=== PATIENT | female | born 1960 | race Hispanic/Latino ===

== ENCOUNTER 2017-05-06 21:07 | Emergency (ER) | payer MEDICAID ==
[2017-05-06] MEDS ORDERED: Bacitracin 500 Units/gm Oint Foilpak UD ONE (21:32)
[2017-05-06] MEDS ORDERED: Bacitracin Ointment 30 GM TUBE TOP STA (21:36)
--- NOTE | 2017-05-06 21:54 | C.PDOC ---
History Of Present Illness 56 year old female BIBA for ETOH intoxication. Patient admits to ETOH use today ; she reports she fell while drinking at home. Patient has had 3 CTs and an MRI done at undisclosed locations for similar complaints with negative findings. Patient was found to do the same at [place] from 04/16 to 04/17. Denies head injury, nausea, vomiting, headache, or dizziness. Time Seen by Provider: 05/06/17 21:39 Chief Complaint (Nursing): Substance Abuse History Per: Patient History/Exam Limitations: no limitations Onset/Duration Of Symptoms: Hrs, Waxing/Waning Suicide/Self Injury Attempted (Context): None Modifying Factor(s): Alcohol Associated Symptoms: denies: Depression, Suicidal Thoughts, Suicidal Plan Recent travel outside of the [place]: No Past Medical History Reviewed: Historical Data, Nursing Documentation, Vital Signs Vital Signs: Last Vital Signs Temp 98.2 F 05/06/17 22:23 Pulse 88 05/06/17 23:00 Resp 16 05/06/17 23:00 BP 148/77 05/06/17 23:00 Pulse Ox 97 05/06/17 23:00 - Medical History PMH: Anxiety, Arthritis, Fractures (right arm, right shoulder, left clavical ( current)), HTN, Seizures (unknown) Surgical History: Tonsillectomy - [facility] Procedures IMMOBILIZ/WOUND ATTN NEC (09/03/14) INJECT/INFUSE NEC (09/03/14) OTHER LOCAL DESTRUC SKIN (01/25/14) Family History: States: Unknown Family Hx - Social History Hx Alcohol Use: Yes Hx Substance Use: No - Immunization History Hx Tetanus Toxoid Vaccination: No Hx Influenza Vaccination: No Hx Pneumococcal Vaccination: No Review Of Systems Gastrointestinal: Negative for: Nausea, Vomiting Neurological: Negative for: Headache, Dizziness, Other (LOC) Physical Exam - Physical Exam Appears: Non-toxic, No Acute Distress, Other (ETOH on breath) Skin: Normal Color, Warm, Dry Head: No Laceration, Other (3x3 hematoma with surrounding ecchymosis and yellowish color changes; color changes to bilateral eyes signifying injury is old and consistent with her story) Oral Mucosa: Moist Chest: Symmetrical, No Tenderness Cardiovascular: Rhythm Regular, No Murmur Respiratory: Normal Breath Sounds, No Rales, No Rhonchi, No Wheezing Gastrointestinal/Abdominal: Soft, No Tenderness Neurological/Psych: Oriented x3, Normal Speech, Normal Cognition ED Course And Treatment - Laboratory Results Result Diagrams: 05/06/17 22:01 05/06/17 22:01 Lab Interpretation: Abnormal (etoh 236 H, tox + Barbiturates and opiates) Progress Note: Blood work, and urinalysis ordered. Bacitracin administered. Patient adamently refuses detox; no detox beds available as per Crisis. Patient refuses CT head due to having multiple CTs over the last few days. pt verbally abusive with ED staff and this MD, repeatedly proclaiming she is not an alcoholic! Reevaluation Time: 23:50 Reassessment Condition: Improved Medical Decision Making Medical Decision Making: [facility] reviewed: pt with extensive Klonopin and Perocet Regimen Percocet 10/325 x 120/month Klonopin 0.5 mg/month Pt's U-tox neg for benzo's so pt is not taking the Klonopin that is being picked up at pharmacy U-tox + Barbiturates (not prescribed) and Opiates (Percocets) Asked why she claims she takes these controlled substances for R shoulder pain- which she demonstrates painless FROM Asked what Barbiturates or if taking Fioricet- could not answer the question 2300: call to [facility] [place] [employer], [facility], who is [facility] this regimen, left [facility] for Dr. Neel borrero. d/w Dr. 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 Further suspect drug diversion of Klonopin as pt picked up 45 tabs 04/29 (6 days ago) but u-tox neg for benzo's. A/P: Ongoing benzo, percocet, Barbiturate and alcohol abuse pt refused detox or psych admission. pending records from [facility] from admission earlier this week. the L frontal contusion and hematoma are more than a few days old due to migrating eccymosis and discoloration repeat head CT refused by pt neurological exam and stable gait returned by d/c. Disposition Doctor Will See Patient In The: Office Counseled Patient/Family Regarding: Studies Performed, Diagnosis - Disposition Disposition: HOME/ ROUTINE Disposition Time: 23:51 Condition: GOOD Forms: [facility] (Tuvaluan) - Clinical Impression Clinical Impression: Alcohol abuse, Polysubstance (including opioids) dependence w/o physiol dependence, Head contusion - Scribe Statement The provider has reviewed the documentation as recorded by the Scribmanuela Vigil All medical record entries made by the Kauribmanuela were at my direction and personally dictated by me. I have reviewed the chart and agree that the record accurately reflects my personal performance of the history, physical exam, medical decision making, and the department course for this patient. I have also personally directed, reviewed, and agree with the discharge instructions and disposition.
[2017-05-06 22:04] LABS: BASO # 0.1 K/uL (0.0-0.2); BASO % 1.1 % (0.0-2.0); EOS # 0.2 K/uL (0.0-0.7); HEMOGLOBIN 12.6 g/dL (11.0-16.0); LYMPH # 2.4 K/uL (1.0-4.3); LYMPH % 24.1 % (20.0-40.0); MEAN CORPUSCULAR HEMOGLOBIN 34.6 pg (27.0-31.0); MEAN CORPUSCULAR HGB CONC 33.6 g/dL (33.0-37.0); MEAN PLATELET VOLUME 8.2 fL (7.2-11.7); NEUT # 6.3 K/uL (1.8-7.0); NEUT % 62.8 % (50.0-75.0); RBC 3.66 Mil/uL (3.80-5.20); RED CELL DISTRIBUTION WIDTH 16.1 % (11.5-14.5)
[2017-05-06 22:08] LABS: MEAN CELL VOLUME 102.8 fL (81.0-99.0)
[2017-05-06 22:13] LABS: ALBUMIN 3.9 g/dL (3.5-5.0)
[2017-05-06 22:15] LABS: GFR AFRICAN-AMERICAN > 60; GFR NON-AFRICAN AMERICAN > 60; SALICYLATE < 1.0 mg/dL 1
[2017-05-06 22:16] LABS: ALB/GLOB RATIO 1.3 (1.0-2.1); ALT/SGPT 29 U/L (9-52); AST/SGOT 35 U/L (14-36); BLOOD UREA NITROGEN 12 mg/dL (7-17); CALCIUM 8.6 mg/dl (8.6-10.4)
[2017-05-06 22:18] LABS: ACETAMINOPHEN < 10.0 ug/mL (10.0-30.0)
[2017-05-06 22:36] LABS: SQUAMOUS EPITHIAL 7 /hpf (0-5); URINE BACTERIA MANY (<OCC); URINE BILIRUBIN 1+ (NEGATIVE); URINE BLOOD 1+ (NEGATIVE); URINE CLARITY Hazy (Clear); URINE COLOR Amber (YELLOW); URINE GLUCOSE (UA) NORMAL (Normal); URINE LEUKOCYTE ESTERASE 2+ Leu/uL (Negative); URINE NITRATE NEGATIVE (NEGATIVE); URINE PROTEIN 2+ mg/dL (NEGATIVE)
[2017-05-06 22:55] LABS: BARBITURATES, UR POSITIVE (NEGATIVE); BENZODIAZEPINES, UR NEGATIVE (NEGATIVE)
[2017-05-06 22:59] LABS: OPIATES, UR POSITIVE (NEGATIVE); PHENCYCLIDINE, UR NEGATIVE (NEGATIVE)
[2017-05-06 23:01] VITALS: PULSE 88
[2017-05-07 00:03] VITALS: BP 140/84; RESP 18; TEMP 98.8; O2SAT 98
== END 2017-05-07 00:05 | disposition home or self-care (01) ==
LOC: C.ER 21:07
DX: F10.10 Alcohol abuse, uncomplicated (principal); F11.20 Opioid dependence, uncomplicated; Y90.7 Blood alcohol level of 200-239 mg/100 ml; S00.93XA Contusion of unspecified part of head, initial encounter; W19.XXXA Unspecified fall, initial encounter; Y92.009 Unspecified place in unspecified non-institutional (private) residence as the place of occurrence of the external cause

== ENCOUNTER 2017-10-09 11:23 | Inpatient (IN) | payer MEDICAID ==
[2017-10-09 11:23] VITALS: BMI 29.5
[2017-10-09] MEDS ORDERED: Sodium Chloride 0.9% 1,000 ML IV STA (11:57)
--- NOTE | 2017-10-09 12:04 | C.PDOC ---
History Of Present Illness 57 year old female, whose PMHx includes seizure disorder and alcohol and drug abuse, is brought to the ED by EMS after patient reportedly had a seizure as witnessed by homemaker earlier today. Patient is currently confused and appears to be in post-ictal period. She denies fever, chills, urinary/bowel incontinence , extremity numbness/weakness and denies any other injuries at this time. Chief Complaint (Nursing): Seizure History Per: Patient, EMS, Other (homemaker ) History/Exam Limitations: no limitations Recent Seizure Activity Began: Just Before Arrival Number Of Seizures: One Length Of Seizures (Duration): Unknown Quality Of Seizure: Generalized Associated Symptoms: Bit Tongue Post-ictal Period: Yes Additional History Per: Patient, EMS Past Medical History Reviewed: Historical Data, Nursing Documentation, Vital Signs Vital Signs: Last Vital Signs Temp 98.6 F 10/09/17 11:30 Pulse 101 H 10/09/17 16:11 Resp 18 10/09/17 16:11 BP 177/97 H 10/09/17 16:11 Pulse Ox 96 10/09/17 16:11 - Medical History PMH: Anxiety, Arthritis, Fractures (right upper arm), HTN, Seizures Denies: HIV, Chronic Kidney Disease Surgical History: Tonsillectomy - [facility] Procedures IMMOBILIZ/WOUND ATTN NEC (09/03/14) INJECT/INFUSE NEC (09/03/14) OTHER LOCAL DESTRUC SKIN (01/25/14) Family History: States: Unknown Family Hx - Social History Hx Alcohol Use: Yes Hx Substance Use: No - Immunization History Hx Tetanus Toxoid Vaccination: No Hx Influenza Vaccination: No Hx Pneumococcal Vaccination: No Review Of Systems Constitutional: Negative for: Fever, Chills Genitourinary: Negative for: Incontinence Neurological: Positive for: Confusion, Seizures. Negative for: Weakness, Numbness Physical Exam - Physical Exam Appears: Non-toxic, No Acute Distress Skin: Normal Color, Warm, Dry Head: Atraumatic, Normacephalic Eye(s): bilateral: Normal Inspection Oral Mucosa: Moist Tongue: Bite Throat: Normal, No Erythema, No Exudate Neck: Supple Chest: Symmetrical, No Deformity, No Tenderness Cardiovascular: Rhythm Regular, No Murmur Respiratory: Normal Breath Sounds, No Rales, No Rhonchi, No Wheezing Extremity: Normal ROM, Capillary Refill (less than 2 seconds ) Neurological/Psych: Other (alert, oriented and confused ) Gait: Steady ED Course And Treatment - Laboratory Results Result Diagrams: 10/09/17 12:05 10/09/17 12:05 O2 Sat by Pulse Oximetry: 97 (on RA) Pulse Ox Interpretation: Normal - CT Scan/US CT Head Other Rad Studies (CT/US): Interpreted By Me, Read By Radiologist, Radiology Report Reviewed CT/US Interpretation: PROCEDURE: CT HEAD WITHOUT CONTRAST. HISTORY: seizure. COMPARISON: None available. TECHNIQUE: Axial computed tomography images were obtained through the head/brain without intravenous contrast. Radiation dose: Total exam DLP = 965.78 mGy-cm. This CT exam was performed using one or more of the following dose reduction techniques: Automated exposure control, adjustment of the mA and/or kV according to patient size, and/or use of iterative reconstruction technique. FINDINGS: HEMORRHAGE: Age indeterminate left convexity heterogeneous collection consistent with subdural hematoma. Question trace high density within this collection which could indicate acute on chronic blood. BRAIN: Diffuse atrophy with prominence of the ventricles and sulci noted. No mass effect or edema.Scattered periventricular and subcortical white matter hypodensities, which are nonspecific, but often seen with chronic microvascular ischemic disease. VENTRICLES: No hydrocephalus. CALVARIUM: Unremarkable. PARANASAL SINUSES: Increased attenuation of the left maxillary sinus contents may indicate proteinaceous material or fungal colonization. Considered less likely, blood products secondary to trauma. Correlate clinically. MASTOID AIR CELLS: Unremarkable as visualized. No inflammatory changes. OTHER FINDINGS: Postsurgical changes of the left orbit. Chronic appearing bilateral nasal bone fracture deformities. IMPRESSION: Age indeterminate left convexity heterogeneous collection consistent with subdural hematoma. Question trace high density within this collection which could indicate acute on chronic blood. Recommend 6 hour follow-up to assess for stability. Nonspecific white matter changes. Increased attenuation of the left maxillary sinus contents may indicate proteinaceous material or fungal colonization. Considered less likely, blood products secondary to trauma. Correlate clinically. Findings discussed with Vera Humphries on 10/09/17 at 12:39 p.m. Progress Note: Bloodwork, urinalysis, CT Head, CXR, EKG ordered and reviewed. Librium PO and IV Fluids administered. Contacted vicky's PMD, DR. Ashely Mohan, who states he does not have admitting privileges at [facility] and advises to contact Dr. Riggs. Dr. Riggs's service was paged. Notified that Dr. Riggs is away on vacation and advised to contact Dr. Ashton. Dr. Ashton paged at 2:42pm. Unable to reach Dr. Ashton. Case discussed with Dr. Bell, who accepts the patient for admission. Case discussed with Dr. Lopez, who agrees to admit patient to medicine. Advised repeat head CT tomorrow morning. Disposition - Disposition Disposition: HOSPITALIZED Disposition Time: 15:17 Condition: FAIR - Clinical Impression Clinical Impression: Seizure, Subdural hematoma - PA / LABORATORY SCIENTIST / Resident Statement MD/DO has reviewed & agrees with the documentation as recorded. - Scribe Statement The provider has reviewed the documentation as recorded by the Scribe (Kenna Bullard) All medical record entries made by the Scribe were at my direction and personally dictated by me. I have reviewed the chart and agree that the record accurately reflects my personal performance of the history, physical exam, medical decision making, and the department course for this patient. I have also personally directed, reviewed, and agree with the discharge instructions and disposition. Decision To Admit - Pt Status Changed To: Hospital Disposition Of: Observation - . Bed Request Type: Telemetry Admitting Physician: Dannie Bell Patient Diagnosis: Seizure, Subdural hematoma
[2017-10-09 12:11] LABS: BASO # 0.2 K/uL (0.0-0.2); BASO % 1.1 % (0.0-2.0); EOS # 0.1 K/uL (0.0-0.7); HEMOGLOBIN 11.3 g/dL (11.0-16.0); LYMPH # 1.4 K/uL (1.0-4.3); LYMPH % 9.5 % (20.0-40.0); MEAN CELL VOLUME 101.6 fL (81.0-99.0); MEAN CORPUSCULAR HEMOGLOBIN 33.4 pg (27.0-31.0); MEAN CORPUSCULAR HGB CONC 32.9 g/dL (33.0-37.0); MEAN PLATELET VOLUME 8.3 fL (7.2-11.7); MONO # 0.8 K/uL (0.0-0.8); MONO % 5.6 % (0.0-10.0); NEUT # 12.1 K/uL (1.8-7.0); NEUT % 82.8 % (50.0-75.0); PLATELET COUNT 343 K/uL (130-400); RBC 3.39 Mil/uL (3.80-5.20); RED CELL DISTRIBUTION WIDTH 15.5 % (11.5-14.5); WHITE BLOOD COUNT 14.6 K/uL (4.8-10.8)
[2017-10-09 12:24] LABS: ALB/GLOB RATIO 1.2 (1.0-2.1); ALBUMIN 4.3 g/dL (3.5-5.0); ALT/SGPT 26 U/L (9-52); AST/SGOT 25 U/L (14-36); BLOOD UREA NITROGEN 12 mg/dL (7-17); CALCIUM 8.3 mg/dl (8.6-10.4); GFR AFRICAN-AMERICAN > 60; GFR NON-AFRICAN AMERICAN > 60
[2017-10-09 12:28] LABS: DILANTIN (PHENYTOIN) < 3.0 ug/mL (10-20)
[2017-10-09 12:30] LABS: VALPROIC ACID < 10.0 ug/mL (50.0-100.0)
[2017-10-09 12:31] LABS: BANDS 1 % (0-2); BASOPHIL 1 % (0-2); EOSINOPHIL 4 % (0-4); MONOCYTE 4 % (0-10); TOTAL CELLS COUNTED 100
[2017-10-09 12:32] LABS: LYMPHOCYTE 12 % (20-40); NEUTROPHIL 78 % (50-75); PLATELET ESTIMATE NORMAL (NORMAL)
[2017-10-09 12:33] LABS: LARGE PLATELETS PRESENT
--- NOTE | 2017-10-09 12:50 | CT ---
PROCEDURE: CT HEAD WITHOUT CONTRAST. HISTORY: seizure COMPARISON: None available. TECHNIQUE: Axial computed tomography images were obtained through the head/brain without intravenous contrast. Radiation dose: Total exam DLP = 965.78 mGy-cm. This CT exam was performed using one or more of the following dose reduction techniques: Automated exposure control, adjustment of the mA and/or kV according to patient size, and/or use of iterative reconstruction technique. FINDINGS: HEMORRHAGE: Age indeterminate left convexity heterogeneous collection consistent with subdural hematoma. Question trace high density within this collection which could indicate acute on chronic blood. BRAIN: Diffuse atrophy with prominence of the ventricles and sulci noted. No mass effect or edema.Scattered periventricular and subcortical white matter hypodensities, which are nonspecific, but often seen with chronic microvascular ischemic disease. VENTRICLES: No hydrocephalus. CALVARIUM: Unremarkable. PARANASAL SINUSES: Increased attenuation of the left maxillary sinus contents may indicate proteinaceous material or fungal colonization. Considered less likely, blood products secondary to trauma. Correlate clinically. MASTOID AIR CELLS: Unremarkable as visualized. No inflammatory changes. OTHER FINDINGS: Postsurgical changes of the left orbit. Chronic appearing bilateral nasal bone fracture deformities. IMPRESSION: Age indeterminate left convexity heterogeneous collection consistent with subdural hematoma. Question trace high density within this collection which could indicate acute on chronic blood. Recommend 6 hour follow-up to assess for stability. Nonspecific white matter changes. Increased attenuation of the left maxillary sinus contents may indicate proteinaceous material or fungal colonization. Considered less likely, blood products secondary to trauma. Correlate clinically. Findings discussed with Vera Humphries on 10/09/17 at 12:39 p.m.
[2017-10-09 13:25] LABS: BARBITURATES, UR NEGATIVE (NEGATIVE); BENZODIAZEPINES, UR NEGATIVE (NEGATIVE); OPIATES, UR NEGATIVE (NEGATIVE); PHENCYCLIDINE, UR NEGATIVE (NEGATIVE)
--- NOTE | 2017-10-09 13:25 | RAD ---
HISTORY: Seizure COMPARISON: CT of the chest with contrast performed 02/24/16 TECHNIQUE: Chest, one view. FINDINGS: Examination limited by habitus. LUNGS: No focal consolidation. Please note that chest x-ray has limited sensitivity for the detection of pulmonary masses. PLEURA: No significant pleural effusion identified. No definite pneumothorax . CARDIOVASCULAR: Heart size appears top normal. OSSEOUS STRUCTURES: Metallic plate and screw fixation of the right proximal humerus. Chronic deformity of the distal left clavicle. VISUALIZED UPPER ABDOMEN: Unremarkable. OTHER FINDINGS: None. IMPRESSION: No focal consolidation, significant pleural effusion, or definite pneumothorax identified.
[2017-10-09 13:56] LABS: SQUAMOUS EPITHIAL 1 /hpf (0-5); URINE BACTERIA MANY (<OCC); URINE BILIRUBIN NEGATIVE (NEGATIVE); URINE BLOOD NEGATIVE (NEGATIVE); URINE CLARITY Clear (Clear); URINE COLOR Yellow (YELLOW); URINE GLUCOSE (UA) NORMAL (Normal); URINE LEUKOCYTE ESTERASE NEG Leu/uL (Negative); URINE NITRATE POSITIVE (NEGATIVE); URINE PROTEIN 1+ mg/dL (NEGATIVE); URINE UROBILINOGEN NORMAL mg/dL (0.2-1.0)
[2017-10-09 16:27] LABS: INR 1.1; PROTHROMBIN TIME 12.5 SECONDS (9.7-12.2)
[2017-10-09] MEDS: (Novolin R) Insulin Human Regular 100 units/ml vial SC SCH (22:20)
--- NOTE | 2017-10-09 23:59 | CP.PCM.HP ---
History of Present Illness - History of Present Illness History of Present Illness: CC: Seizure episode HPI: 57 year old white female, whose PMHx includes seizure disorder and alcohol and drug abuse, non complaint with diet, medication and follow up, recent hospitalizationis brought to the ED by EMS after patient reportedly had a seizure as witnessed by homemaker earlier today. Patient is currently confused and appears to be in post-ictal period. She denies fever, chills, urinary/bowel incontinence, extremity numbness/weakness and denies any other injuries at this time Present on Admission - Present on Admission Any Indicators Present on Admission: Yes Review of Systems - Review of Systems Systems not reviewed;Unavailable: Acuity of Condition - Constitutional Constitutional: Fatigue, Malaise, Weakness - EENT Eyes: absent: As Per HPI, Blind Spots, Blurred Vision, Change in Vision, Decreased Night Vision, Diplopia, Discharge, Dry Eye, Exophthalmos, Floaters, Irritation, Itchy Eyes, Loss of Peripheral Vision, Pain, Photophobia, Requires Corrective Lenses, Sees Flashes, Spots in Vision, Tunnel Vision, Other Visual Disturbances, Loss of Vision, Other Nose/Mouth/Throat: absent: As Per HPI, Epistaxis, Nasal Congestion, Nasal Discharge, Nasal Obstruction, Nasal Trauma, Nose Pain, Post Nasal Drip, Sinus Pain, Sinus Pressure, Bleeding Gums, Change in Voice, Dental Pain, Dry Mouth, Dysphagia, Halitosis, Hoarsness, Lip Swelling, Mouth Lesions, Mouth Pain, Odynophagia, Sore Throat, Throat Swelling, Tongue Swelling, Facial Pain, Neck Pain, Neck Mass, Other - Cardiovascular Cardiovascular: absent: As Per HPI, Acrocyanosis, Chest Pain, Chest Pain at Rest , Chest Pain with Activity, Claudication, Diaphoresis, Dyspnea, Dyspnea on Exertion, Edema, Irregular Heart Rhythm, Pain Radiating to Arm/Neck/Jaw, Leg Edema, Leg Ulcers, Lightheadedness, Orthopnea, Palpitations, Paroxysmal Nocturnal Dyspnea, Pedal Edema, Radiating Pain, Rapid Heart Rate, Slow Heart Rate, Syncope, Other - Gastrointestinal Gastrointestinal: absent: As Per HPI, Abdominal Pain, Belching, Bloating, Change in Bowel Habits, Change in Stool Character, Coffee Ground Emesis, Constipation, Cramping, Diarrhea, Dyspepsia, Dysphagia, Early Satiety, Excessive Flatus, Fecal Incontinence, Heartburn, Hematemesis, Hematochezia, Loose Stools, Melena, Nausea, Odynophagia, Temesmus, Vomiting, Other - Genitourinary Genitourinary: absent: As Per HPI, Change in Urinary Stream, Difficulty Urinating, Dysuria, Flank Pain, Hematuria, Pyuria, Nocturia, Urinary Incontinence, Urinary Frequency, Urinary Hesitance, Urinary Urgency, Voiding Freq/Small Amts, Freq UTI, Hx Renal/Bladder Calculi, Hx /Renal Surgery, Bladder Distension, Other - Neurological Neurological: Abnormal Movements, Dizziness. absent: As Per HPI, Abnormal Gait , Abnormal Hearing, Abnormal Speech, Behavioral Changes, Burning Sensations, Confusion, Convulsions, Disequilibrium, Numbness, Focal Weakness, Frequent Falls , Headaches, Lack of Coordination, Loss of Vision, Memory Loss, Paresthesias, Radicular Pain, Restless Legs, Sensory Deficit, Syncope, Tingling, Tremor, Vertigo, Weakness, Other Visual Disturbances, Other - Psychiatric Psychiatric: absent: As Per HPI, Abnormal Sleep Pattern, Anhedonia, Anxiety, Auditory Hallucinations, Behavioral Changes, Change in Appetite, Change in Libido, Confusion, Depression, Difficulty Concentrating, Hallucinations, Homicidal Ideation, Hopelessness, Irritability, Memory Loss, Mood Swings, Panic Attacks, Paranoia, Suicidal Ideation, Visual Hallucinations, Tactile Hallucinations, Other Past Patient History - Infectious Disease Hx of Infectious Diseases: None - Past Medical History & Family History Past Medical History?: Yes - Past Social History Smoking Status: Never Smoked - CARDIAC Hx Hypertension: Yes - PULMONARY Hx Respiratory Disorders: No - NEUROLOGICAL Hx Seizures: Yes - HEENT Hx HEENT Problems: No - RENAL Hx Chronic Kidney Disease: No - ENDOCRINE/METABOLIC Hx Endocrine Disorders: Yes (DM2) - HEMATOLOGICAL/ONCOLOGICAL Hx Human Immunodeficiency Virus (HIV): No - INTEGUMENTARY Hx Dermatological Problems: No - MUSCULOSKELETAL/RHEUMATOLOGICAL Hx Falls: Yes - GASTROINTESTINAL Hx Gastrointestinal Disorders: No - GENITOURINARY/GYNECOLOGICAL Hx Genitourinary Disorders: No - PSYCHIATRIC Hx Substance Use: No - SURGICAL HISTORY Hx Tonsillectomy: Yes - ANESTHESIA Hx Anesthesia: Yes Hx Anesthesia Reactions: No Hx Malignant Hyperthermia: No Meds Allergies/Adverse Reactions: Allergies Allergy/AdvReac Type Severity Reaction Status Date / Time No Known Allergies Allergy Verified 10/09/17 11:34 Physical Exam - Constitutional Appears: No Acute Distress - Head Exam Head Exam: ATRAUMATIC, NORMAL INSPECTION, NORMOCEPHALIC - Eye Exam Eye Exam: EOMI, Normal appearance, PERRL Pupil Exam: NORMAL ACCOMODATION, PERRL - Respiratory Exam Respiratory Exam: Clear to Auscultation Bilateral, NORMAL BREATHING PATTERN - Cardiovascular Exam Cardiovascular Exam: REGULAR RHYTHM - GI/Abdominal Exam GI & Abdominal Exam: Normal Bowel Sounds, Soft. absent: Tenderness - Psychiatric Exam Psychiatric exam: Normal Affect, Normal Mood - Skin Additional comments: skin is flushed, no bruises Results - Vital Signs Recent Vital Signs: Last Vital Signs Temp 98.3 F 10/09/17 20:20 Pulse 96 H 10/09/17 20:20 Resp 20 10/09/17 20:20 BP 164/89 H 10/09/17 20:20 Pulse Ox 97 10/09/17 20:20 - Labs Result Diagrams: 10/09/17 12:05 10/09/17 12:05 Labs: Laboratory Results - last 24 hr 10/09/17 10/09/17 10/09/17 11:26 12:05 12:05 WBC 14.6 H RBC 3.39 L Hgb 11.3 Hct 34.4 MCV 101.6 H MCH 33.4 H MCHC 32.9 L RDW 15.5 H Plt Count 343 MPV 8.3 Neut % (Auto) 82.8 H Lymph % (Auto) 9.5 L [place] % (Auto) 5.6 Eos % (Auto) 1.0 Baso % (Auto) 1.1 Neut # 12.1 H Lymph # 1.4 [place] # 0.8 Eos # 0.1 Baso # 0.2 Neutrophils % (Manual) 78 H Band Neutrophils % 1 Lymphocytes % (Manual) 12 L Monocytes % (Manual) 4 Eosinophils % (Manual) 4 Basophils % (Manual) 1 Platelet Estimate Normal Large Platelets Present PT INR APTT Sodium 132 Potassium 4.2 Chloride 95 L Carbon Dioxide 26 Anion Gap 15 BUN 12 Creatinine 0.4 L Est GFR ( Amer) > 60 Est GFR (Non-Af Amer) > 60 POC Glucose (mg/dL) 124 H Random Glucose 119 H Calcium 8.3 L Total Bilirubin 0.6 AST 25 ALT 26 Alkaline Phosphatase 117 Total Creatine Kinase 61 Total Protein 7.9 Albumin 4.3 Globulin 3.6 Albumin/Globulin Ratio 1.2 Urine Color Urine Clarity Urine pH Ur Specific [place] Urine Protein Urine Glucose (UA) Urine Ketones Urine Blood Urine Nitrate Urine Bilirubin Urine Urobilinogen Ur Leukocyte Esterase Urine WBC (Auto) Urine RBC (Auto) Ur Squamous Epith Cells Urine Bacteria Urine Opiates Screen Urine Methadone Screen Ur Barbiturates Screen Phenytoin Valproic Acid Carbamazepine Ur Phencyclidine Scrn Ur Amphetamines Screen U Benzodiazepines Scrn U Oth Cocaine Metabols U Cannabinoids Screen Alcohol, Quantitative < 10 10/09/17 10/09/17 10/09/17 12:05 12:49 12:49 WBC RBC Hgb Hct MCV MCH MCHC RDW Plt Count MPV Neut % (Auto) Lymph % (Auto) [place] % (Auto) Eos % (Auto) Baso % (Auto) Neut # Lymph # [place] # Eos # Baso # Neutrophils % (Manual) Band Neutrophils % Lymphocytes % (Manual) Monocytes % (Manual) Eosinophils % (Manual) Basophils % (Manual) Platelet Estimate Large Platelets PT INR APTT Sodium Potassium Chloride Carbon Dioxide Anion Gap BUN Creatinine Est GFR ( Amer) Est GFR (Non-Af Amer) POC Glucose (mg/dL) Random Glucose Calcium Total Bilirubin AST ALT Alkaline Phosphatase Total Creatine Kinase Total Protein Albumin Globulin Albumin/Globulin Ratio Urine Color Yellow Urine Clarity Clear Urine pH 7.0 Ur Specific [place] 1.014 Urine Protein 1+ H Urine Glucose (UA) Normal Urine Ketones Negative Urine Blood Negative Urine Nitrate Positive H Urine Bilirubin Negative Urine Urobilinogen Normal Ur Leukocyte Esterase Neg Urine WBC (Auto) 6 H Urine RBC (Auto) < 1 Ur Squamous Epith Cells 1 Urine Bacteria Many H Urine Opiates Screen Negative Urine Methadone Screen Negative Ur Barbiturates Screen Negative Phenytoin < 3.0 L Valproic Acid < 10.0 L Carbamazepine 4.0 Ur Phencyclidine Scrn Negative Ur Amphetamines Screen Negative U Benzodiazepines Scrn Negative U Oth Cocaine Metabols Negative U Cannabinoids Screen Negative Alcohol, Quantitative 10/09/17 16:09 WBC RBC Hgb Hct MCV MCH MCHC RDW Plt Count MPV Neut % (Auto) Lymph % (Auto) [place] % (Auto) Eos % (Auto) Baso % (Auto) Neut # Lymph # [place] # Eos # Baso # Neutrophils % (Manual) Band Neutrophils % Lymphocytes % (Manual) Monocytes % (Manual) Eosinophils % (Manual) Basophils % (Manual) Platelet Estimate Large Platelets PT 12.5 H INR 1.1 APTT 27 Sodium Potassium Chloride Carbon Dioxide Anion Gap BUN Creatinine Est GFR ( Amer) Est GFR (Non-Af Amer) POC Glucose (mg/dL) Random Glucose Calcium Total Bilirubin AST ALT Alkaline Phosphatase Total Creatine Kinase Total Protein Albumin Globulin Albumin/Globulin Ratio Urine Color Urine Clarity Urine pH Ur Specific [place] Urine Protein Urine Glucose (UA) Urine Ketones Urine Blood Urine Nitrate Urine Bilirubin Urine Urobilinogen Ur Leukocyte Esterase Urine WBC (Auto) Urine RBC (Auto) Ur Squamous Epith Cells Urine Bacteria Urine Opiates Screen Urine Methadone Screen Ur Barbiturates Screen Phenytoin Valproic Acid Carbamazepine Ur Phencyclidine Scrn Ur Amphetamines Screen U Benzodiazepines Scrn U Oth Cocaine Metabols U Cannabinoids Screen Alcohol, Quantitative Assessment & Plan (1) Seizure Status: Acute (2) Subdural hematoma Assessment and Plan: chronic but we shall get neurosurgical consult Status: Acute (3) Alcohol abuse Status: Acute
[2017-10-10] MEDS: (Novolin R) Insulin Human Regular 100 units/ml vial SC SCH ×4 (08:18→21:44)
[2017-10-10] MEDS ORDERED: Enoxaparin 40 mg Syringe SC SCH (10:00)
--- NOTE | 2017-10-10 10:28 | CP.PCM.PN ---
Subjective - Date & Time of Evaluation Date of Evaluation: 10/10/17 Time of Evaluation: 10:25 - Subjective Subjective: pt with csdh noted originally in July 2017 Seen at multiple [facility] for non compliance with seizure medication and alcohol abuse now presents again with CSDH no bigger than before, after having another seizure. There is no surgical intervention indicated. Radiologists did not go back to prior admissions to compare old studies Objective - Vital Signs/Intake and Output Vital Signs (last 24 hours): Temp Pulse Resp BP Pulse Ox 98.4 F 95 H 20 153/86 H 95 10/10/17 07:45 10/10/17 07:45 10/10/17 07:45 10/10/17 07:45 10/10/17 07:45 Intake and Output: 10/10/17 10/10/17 06:59 18:59 Intake Total 110 Balance 110 - Medications Medications: Current Medications Amlodipine Besylate (Norvasc) 2.5 mg PO DAILY [facility] Last Admin: 10/10/17 09:33 Dose: 2.5 mg Carbamazepine (Tegretol) 200 mg PO BID [facility] Last Admin: 10/10/17 09:34 Dose: 200 mg Folic Acid (Folic Acid) 1 mg PO DAILY [facility] Last Admin: 10/10/17 09:33 Dose: 1 mg Insulin Human Regular (Novolin R) 0 unit SC ACHS [facility] PRN Reason: Protocol Last Admin: 10/10/17 08:18 Dose: Not Given Metformin HCl (Glucophage Xr) 500 mg PO BID [facility] Last Admin: 10/10/17 09:32 Dose: 500 mg Phenytoin Sodium (Dilantin) 100 mg PO TID [facility] Last Admin: 10/10/17 09:33 Dose: 100 mg Zolpidem Tartrate (Ambien) 5 mg PO HS PRN PRN Reason: Insomnia Last Admin: 10/10/17 00:18 Dose: 5 mg - Labs Labs: 10/09/17 12:05 10/09/17 12:05 PT 12.5 SECONDS (9.7-12.2) H 10/09/17 16:09 INR 1.1 10/09/17 16:09 APTT 27 SECONDS (21-34) 10/09/17 16:09
--- NOTE | 2017-10-10 12:01 | CT ---
PROCEDURE: CT HEAD WITHOUT CONTRAST. HISTORY: f/u COMPARISON: None available. TECHNIQUE: Axial computed tomography images were obtained through the head/brain without intravenous contrast. Radiation dose: Total exam DLP = 892 mGy-cm. This CT exam was performed using one or more of the following dose reduction techniques: Automated exposure control, adjustment of the mA and/or kV according to patient size, and/or use of iterative reconstruction technique. FINDINGS: HEMORRHAGE: The previously referenced left sub dural frontoparietal convexity hematoma mostly low-density consistent with a chronic subdural renoted. No change in size is seen. No interval increased hyperdense more acute or subacute appearing blood now noted. The prior mentioned possibility of minimal acute on chronic blood is renoted on this exam as well BRAIN: As above. The prior chronic microvascular ischemic changes are renoted VENTRICLES: Unremarkable. No hydrocephalus. CALVARIUM: Unremarkable. PARANASAL SINUSES: Paranasal sinus inflammatory changes are renoted is also applied trauma changes and postsurgical changes of the left maxillary anterior wall the fluid level here B did prior trauma and/or acute sinusitis. Correlate clinically this appearance is similar MASTOID AIR CELLS: Unremarkable as visualized. No inflammatory changes. OTHER FINDINGS: None. IMPRESSION: The left convexity extra-axial collection consistent with a subdural hematoma is similar in appearance - likely relates to an acute to chronic subdural. No increasing size or significant appearing acute/subacute hemorrhagic components now noted. Sub cm potential blood products- are similar. Continued surveillance recommended Left maxillary sinus posttraumatic/ postsurgical changes. Air-fluid level here as described above compatible with liquified blood and/or acute sinusitis. Follow-up recommended
[2017-10-10 14:10] LABS: CARBAMAZEPINE 3.9 ug/mL (4.0-12.0)
--- NOTE | 2017-10-10 14:35 | CARD ---
APPROVED REPORT EKG Measurement Heart [id number] <Conclusion> Sinus tachycardia Otherwise normal ECG
[2017-10-10 14:50] LABS: DILANTIN (PHENYTOIN) 10.5 ug/mL (10-20)
--- NOTE | 2017-10-10 16:32 | CP.PCM.CON ---
History of Present Illness - History of Present Illness History of Present Illness: Mrs. Blevins is a 57-year-old woman with a past medical history of hypertension, diabetes, alcohol abuse, and seizure disorder, who was brought in for a generalized tonic-clonic seizure. According to the patient, she is compliant with dilantin and carbamazepine. Her level of dilantin was low, but therapeutic ; however, the carbamazepine level was subtherapeutic. She is currently back to baseline, but states that she still feels sore, tired and her memory is impaired. She had bitten her tongue on both sides, but her speech was clear. According to the chart review, the patient has a long history of non-compliance and alcohol abuse as well as alcohol withdrawal seizures. On previous admissions, CT scan of the head demonstrated a left chronic subdural. Repeat CT scan done during this admission showed that this continues to be stable, but there was an area of concern where there may be a more acute component. However , when this was repeated again, it was confirmed that the area is of lower density and likely chronic. She is followed by neurosurgery, and there is no plan for surgery at this time. Review of Systems - Review of Systems All systems: reviewed and no additional remarkable complaints except Past Patient History - Infectious Disease Hx of Infectious Diseases: None - Past Medical History & Family History Past Medical History?: Yes - Past Social History Smoking Status: Never Smoked - CARDIAC Hx Hypertension: Yes - PULMONARY Hx Respiratory Disorders: No - NEUROLOGICAL Hx Seizures: Yes - HEENT Hx HEENT Problems: No - RENAL Hx Chronic Kidney Disease: No - ENDOCRINE/METABOLIC Hx Endocrine Disorders: Yes (DM2) - HEMATOLOGICAL/ONCOLOGICAL Hx Human Immunodeficiency Virus (HIV): No - INTEGUMENTARY Hx Dermatological Problems: No - MUSCULOSKELETAL/RHEUMATOLOGICAL Hx Arthritis: Yes - GASTROINTESTINAL Hx Gastrointestinal Disorders: No - GENITOURINARY/GYNECOLOGICAL Hx Genitourinary Disorders: No - PSYCHIATRIC Hx Substance Use: No - SURGICAL HISTORY Hx Tonsillectomy: Yes - ANESTHESIA Hx Anesthesia: Yes Hx Anesthesia Reactions: No Hx Malignant Hyperthermia: No Meds Allergies/Adverse Reactions: Allergies Allergy/AdvReac Type Severity Reaction Status Date / Time No Known Allergies Allergy Verified 10/09/17 11:34 - Medications Medications: Current Medications Amlodipine Besylate (Norvasc) 5 mg PO DAILY [facility] Carbamazepine (Tegretol) 400 mg PO Q12 [facility] Folic Acid (Folic Acid) 1 mg PO DAILY [facility] Last Admin: 10/10/17 09:33 Dose: 1 mg Insulin Human Regular (Novolin R) 0 unit SC ACHS [facility] PRN Reason: Protocol Last Admin: 10/10/17 12:23 Dose: Not Given Lorazepam (Ativan) 1 mg PO Q6 PRN PRN Reason: Anxiety Metformin HCl (Glucophage Xr) 500 mg PO BID [facility] Last Admin: 10/10/17 09:32 Dose: 500 mg Phenytoin Sodium (Dilantin) 100 mg PO TID [facility] Last Admin: 10/10/17 13:59 Dose: 100 mg Zolpidem Tartrate (Ambien) 5 mg PO HS PRN PRN Reason: Insomnia Last Admin: 10/10/17 00:18 Dose: 5 mg Physical Exam - Constitutional Appears: Well - Head Exam Head Exam: ATRAUMATIC, NORMAL INSPECTION, NORMOCEPHALIC - Eye Exam Eye Exam: EOMI, Normal appearance, PERRL - ENT Exam ENT Exam: Mucous Membranes Moist, Normal Exam - Neck Exam Neck exam: Positive for: Normal Inspection - Respiratory Exam Respiratory Exam: Clear to Auscultation Bilateral, NORMAL BREATHING PATTERN - Cardiovascular Exam Cardiovascular Exam: REGULAR RHYTHM, +S1, +S2 - GI/Abdominal Exam GI & Abdominal Exam: Normal Bowel Sounds, Soft. absent: Tenderness - Rectal Exam Rectal Exam: Deferred - Extremities Exam Extremities exam: Positive for: normal inspection - Back Exam Back exam: NORMAL INSPECTION - Neurological Exam Neurological exam: Alert, CN II-XII Intact, Normal Gait, Oriented x3, Reflexes Normal - Psychiatric Exam Psychiatric exam: Normal Affect, Normal Mood - Skin Skin Exam: Dry, Intact, Normal Color, Warm Results - Vital Signs Recent Vital Signs: Last Vital Signs Temp 98.4 F 10/10/17 07:45 Pulse 95 H 10/10/17 07:45 Resp 20 10/10/17 07:45 BP 153/86 H 10/10/17 07:45 Pulse Ox 95 10/10/17 07:45 - Labs Result Diagrams: 10/09/17 12:05 10/09/17 12:05 Labs: Laboratory Results - last 24 hr 10/09/17 10/09/17 10/10/17 16:09 21:51 06:17 PT 12.5 H INR 1.1 APTT 27 POC Glucose (mg/dL) 123 H 118 H Phenytoin Carbamazepine 10/10/17 10/10/17 11:29 13:37 PT INR APTT POC Glucose (mg/dL) 137 H Phenytoin 10.5 Carbamazepine 3.9 L Assessment & Plan (1) Seizure Assessment and Plan: Will continue dilantin at current dose, but increase carbamazepine to 400 mg BID. No further imaging or EEGs required at this time. Status: Acute Priority: High (2) Subdural hematoma Assessment and Plan: Will defer to neurosurgery for further follow-up or any recommended imaging. Status: Chronic Priority: Medium
--- NOTE | 2017-10-10 23:15 | CP.PCM.PN ---
Subjective - Date & Time of Evaluation Date of Evaluation: 10/10/17 Time of Evaluation: 18:00 - Subjective Subjective: pt seen and evaluated, is anxious and nervous, she is possibly on dilantin, also seen by neurolgy, less depressed,afebrile Objective - Vital Signs/Intake and Output Vital Signs (last 24 hours): Temp Pulse Resp BP Pulse Ox 98.3 F 110 H 18 158/91 H 95 10/10/17 16:00 10/10/17 17:57 10/10/17 16:00 10/10/17 16:00 10/10/17 16:00 Intake and Output: 10/10/17 10/11/17 18:59 06:59 Intake Total 600 Balance 600 - Medications Medications: Current Medications Amlodipine Besylate (Norvasc) 5 mg PO DAILY [facility] Carbamazepine (Tegretol) 400 mg PO Q12 [facility] Last Admin: 10/10/17 21:43 Dose: 400 mg Folic Acid (Folic Acid) 1 mg PO DAILY [facility] Last Admin: 10/10/17 09:33 Dose: 1 mg Insulin Human Regular (Novolin R) 0 unit SC ACHS [facility] PRN Reason: Protocol Last Admin: 10/10/17 21:44 Dose: Not Given Lorazepam (Ativan) 1 mg PO Q6 PRN PRN Reason: Anxiety Last Admin: 10/10/17 16:40 Dose: 1 mg Metformin HCl (Glucophage Xr) 500 mg PO BID [facility] Last Admin: 10/10/17 17:29 Dose: 500 mg Phenytoin Sodium (Dilantin) 100 mg PO TID [facility] Last Admin: 10/10/17 17:29 Dose: 100 mg Zolpidem Tartrate (Ambien) 5 mg PO HS PRN PRN Reason: Insomnia Last Admin: 10/10/17 00:18 Dose: 5 mg - Labs Labs: 10/09/17 12:05 10/09/17 12:05 PT 12.5 SECONDS (9.7-12.2) H 10/09/17 16:09 INR 1.1 10/09/17 16:09 APTT 27 SECONDS (21-34) 10/09/17 16:09 Assessment and Plan (1) Seizure Status: Acute (2) Subdural hematoma Assessment & Plan: neurosurgey has been consulted repeat CT shows hematoma unchanged Status: Chronic (3) Alcohol abuse Status: Acute
[2017-10-11 00:40] VITALS: RESP 20
[2017-10-11] MEDS: (Novolin R) Insulin Human Regular 100 units/ml vial SC SCH ×3 (07:45→18:00)
[2017-10-11 08:08] VITALS: O2SAT 98
--- NOTE | 2017-10-11 12:25 | PCM.PSYCH ---
Initial Psychiatric Evaluation - Initial Psychiatric Evaluation Type of Admission: Voluntary Legal Status: Capacity Chief Complaint (in patient's own words): "I'm anxious all the time" History of Present Illness and Precipitating Events: The patient is seen chart reviewed and case discussed. This is a 57-year-old female, single with no child, lives alone, on SSI due to seizure disorder. Psych consultation was requested for patient's anxiety. The patient reports no past psych history but she admits to suffering from anxiety "all the time" She usually gets anxious excessively about small things and sometimes "people's stupidity" No panic attacks She denies feeling depressed or suicidal No manic or psychotic symptoms elicited Denies drug alcohol use. Past psych history: Denies Family psych history: Denies Medical history: Hypertension and seizure disorder Current Medications: Active Medications Generic Name Dose Route Start Last Admin Trade Name Freq PRN Reason Stop Dose Admin Amlodipine Besylate 5 mg 10/11/17 10:00 10/11/17 09:34 Norvasc PO 5 mg DAILY [facility] Administration Carbamazepine 400 mg 10/10/17 22:00 10/11/17 09:42 Tegretol PO 400 mg Q12 [facility] Administration Folic Acid 1 mg 10/10/17 10:00 10/11/17 09:34 Folic Acid PO 1 mg DAILY [facility] Administration Insulin Human Regular 0 unit 10/09/17 22:00 10/11/17 11:41 Novolin R SC Not Given ACHS [facility] Protocol Lorazepam 1 mg 10/10/17 12:59 10/11/17 09:35 Ativan PO 1 mg Q6 PRN Administration Anxiety Metformin HCl 500 mg 10/09/17 18:00 10/11/17 09:34 Glucophage Xr PO 500 mg BID [facility] Administration Phenytoin Sodium 100 mg 10/09/17 18:00 10/11/17 09:42 Dilantin PO 100 mg TID [facility] Administration Zolpidem Tartrate 5 mg 10/10/17 00:04 10/10/17 00:18 Ambien PO 5 mg HS PRN Administration Insomnia Past Psychiatric History - Past Psychiatric History Previous Treatment History: None Pertinent Medical Hx (Current Medical&Sleep Prob, Allergies): Allergies Allergy/AdvReac Type Severity Reaction Status Date / Time No Known Allergies Allergy Verified 10/09/17 11:34 Phenytoin, Extended [Dilantin] 100 mg PO TID 08/10/16 Ibuprofen [Motrin Tab] 800 mg PO TID 07/11/17 Metformin ER [Glucophage XR] 500 mg PO BID 07/11/17 Ondansetron ODT [Zofran ODT] 4 mg PO Q8 07/11/17 Phenytoin Sodium Extended [Phenytoin Sodium Extended] 100 mg PO TID 07/11/17 carBAMazepine [Tegretol] 200 mg PO BID 07/11/17 Acetaminophen/Butalbital/Caf [Fioricet] 1 tab PO Q6H PRN 07/24/17 Cyclobenzaprine HCl 5 mg PO Q8H PRN 07/24/17 Ibuprofen [Motrin Tab] 800 mg PO Q8H PRN 07/24/17 Escitalopram [Lexapro] 10 mg PO DAILY 07/31/17 Furosemide [Lasix] 20 mg PO DAILY 07/31/17 Lubiprostone [Amitiza] 8 mcg PO BID 07/31/17 Meclizine [Meclizine*] 25 mg PO Q8H PRN 07/31/17 Metformin ER [Glucophage XR] 500 mg PO BID 07/31/17 Triamterene/Hydrochlorothiazid [Triamterene-Hctz 37.5-25 mg Cp] 1 cap PO DAILY 07/31/17 amLODIPine [Norvasc] 2.5 mg PO DAILY 07/31/17 Folic Acid 1 mg PO DAILY #30 tab 08/01/17 carBAMazepine [TEGretol-XR] 300 mg PO Q12 #60 ter 08/01/17 Atorvastatin [Lipitor] 10 mg PO DAILY #30 tab 09/24/17 Clopidogrel [Plavix] 75 mg PO DAILY #30 tab 09/24/17 Lidocaine 5% [Lidoderm] 1 ea TD DAILY #20 patch 09/24/17 Phenytoin [Dilantin] 100 mg PO TID #90 udc 09/24/17 carBAMazepine [TEGretol-XR] 300 mg PO DAILY #30 ter 09/24/17 Review of Systems - Psychiatric Psychiatric: Abnormal Sleep Pattern, Anxiety, Irritability. absent: Hallucinations, Homicidal Ideation, Suicidal Ideation Mental Status Examination - Personal Presentation Personal Presentation: Looks stated age - Affect Affect: Constricted - Motor Activity Motor Activity: Calm - Reliability in Providing Information Reliability in Providing Information: Good - Speech Speech: Organized - Mood Mood: Anxious - Formal Thought Process Formal Thought Process: No Impairment - Cognitive Functions Orientation: Person, Place, Situation, Time Sensorium: Alert Attention/Concentration: Attentive Estimate of Intelligence: Above Average Judgement: Intact, as evidence by: Insight regarding need for hospitalization Memory: Recent intact, as evidence by: Ability to recall events of the day, Remote intact, as evidenced by: Abilit to recall sig. life events - Risk Risk: Diminished functioning - Strength & Assets Inventory Strength & Assets Inventory: Cooperative - Limitations Limitations: Living alone, Other DSM 5 DX - DSM 5 DSM 5 Diagnosis: Generalized anxiety d/o - Recommended/Plan of Treatment Treatment Recommendations and Plan of Treatment: Suport and psychoed Lexapro 5 mg/d for SHANNEN Indiv psychotherapy Cleared for d/c 33 min
--- NOTE | 2017-10-11 13:11 | CP.PCM.PN ---
Subjective - Date & Time of Evaluation Date of Evaluation: 10/11/17 Time of Evaluation: 13:07 - Subjective Subjective: Ms. Blevins was seen and examined at the bedside. She is alert, oriented. She is complaining of headache in the frontal area radiating to the parietal area. She describe it as pressure-like. She denies any blurred vision, dizziness, lightheadedness, nausea, or vomiting. She is able to follow simple commands and ambulates with unsteady gait. She is requesting to be discharge today. There was no untoward events overnight. Objective - Vital Signs/Intake and Output Vital Signs (last 24 hours): Temp Pulse Resp BP Pulse Ox 98.2 F 93 H 20 161/92 H 98 10/11/17 07:30 10/11/17 07:30 10/11/17 07:30 10/11/17 07:30 10/11/17 07:30 - Medications Medications: Current Medications Amlodipine Besylate (Norvasc) 5 mg PO DAILY [facility] Last Admin: 10/11/17 09:34 Dose: 5 mg Carbamazepine (Tegretol) 400 mg PO Q12 [facility] Last Admin: 10/11/17 09:42 Dose: 400 mg Escitalopram Oxalate (Lexapro) 5 mg PO DAILY [facility] Folic Acid (Folic Acid) 1 mg PO DAILY [facility] Last Admin: 10/11/17 09:34 Dose: 1 mg Magnesium Sulfate/Dextrose (Magnesium Sulfate 1 Gm/100 Ml D5w) 1 gm in 100 mls @ 300 mls/hr IVPB Q30M [facility] Stop: 10/11/17 13:34 Insulin Human Regular (Novolin R) 0 unit SC ACHS [facility] PRN Reason: Protocol Last Admin: 10/11/17 11:41 Dose: Not Given Lorazepam (Ativan) 1 mg PO Q6 PRN PRN Reason: Anxiety Last Admin: 10/11/17 09:35 Dose: 1 mg Metformin HCl (Glucophage Xr) 500 mg PO BID [facility] Last Admin: 10/11/17 09:34 Dose: 500 mg Phenytoin Sodium (Dilantin) 100 mg PO TID [facility] Last Admin: 10/11/17 09:42 Dose: 100 mg Zolpidem Tartrate (Ambien) 5 mg PO HS PRN PRN Reason: Insomnia Last Admin: 10/10/17 00:18 Dose: 5 mg - Labs Labs: 10/09/17 12:05 10/09/17 12:05 PT 12.5 SECONDS (9.7-12.2) H 10/09/17 16:09 INR 1.1 10/09/17 16:09 APTT 27 SECONDS (21-34) 10/09/17 16:09 - Constitutional Appears: No Acute Distress - Head Exam Head Exam: NORMAL INSPECTION - Neurological Exam Neurological Exam: Alert, Awake, Oriented x3 Neuro motor strength exam: Left Upper Extremity: 5, Right Upper Extremity: 5, Left Lower Extremity: 5, Right Lower Extremity: 5 Additional comments: She is able to follow simple commands, with unsteady gait. sensation remains intact. Assessment and Plan (1) Alcohol withdrawal Assessment & Plan: Case discussed with Dr. Barrera, continue all current medical regimen. Recommend repeat CT of the head without contrast. Physical therapy to treat and evaluate. Status: Acute (2) Headache Assessment & Plan: Case discussed with Dr. Barrera, magnesium sulfate 2 gms IV for one dose and decadron 10 mg IV for one dose. Status: Acute
[2017-10-11] MEDS: Magnesium Sulfate 1 gm in D5W 1 GM/100 ML BAG IVPB SCH ×2 (13:21→13:45)
--- NOTE | 2017-10-11 13:24 | CT ---
PROCEDURE: CT HEAD WITHOUT CONTRAST. HISTORY: subdural hematoma COMPARISON: Comparison is made with the previous study dated 10/10/2017 and 10/09/2017 TECHNIQUE: Axial computed tomography images were obtained through the head/brain without intravenous contrast. Radiation dose: Total exam DLP = 904.39 mGy-cm. This CT exam was performed using one or more of the following dose reduction techniques: Automated exposure control, adjustment of the mA and/or kV according to patient size, and/or use of iterative reconstruction technique. FINDINGS: HEMORRHAGE: Re- demonstrated is heterogeneous mixed low-attenuation and mildly high attenuation subdural hematoma along the left convexity more prominent at the left temporal frontal region. The maximum thickness of this extra-axial collection is 6 millimeter. No significant interval change noted since the previous exam. BRAIN: No mass effect or edema. Moderate atrophy and moderate white matter changes are again noted. VENTRICLES: Unremarkable. No hydrocephalus. CALVARIUM: Unremarkable. PARANASAL SINUSES: Air-fluid level is noted at the left maxillary sinus. MASTOID AIR CELLS: Unremarkable as visualized. No inflammatory changes. OTHER FINDINGS: Patient status post mesh fixation of the left orbit floor fracture. IMPRESSION: Stable heterogeneous mixed low and slightly high attenuation subdural hematoma along the left temporal frontal convexity. No significant interval change noted since the previous exam.
--- NOTE | 2017-10-11 15:32 | CP.PCM.PN ---
Subjective - Date & Time of Evaluation Date of Evaluation: 10/11/17 Time of Evaluation: 11:30 - Subjective Subjective: Patient seen today, awake, alert, ox3, denies any chest pain, palpitations, dizziness, headache, blurred vision c/o anxiety , wants to go home today oob ambulating the hallway slow gait without assistance No overnight events reported by Rn No siezure activity reported since admission Objective - Vital Signs/Intake and Output Vital Signs (last 24 hours): Temp Pulse Resp BP Pulse Ox 98.2 F 93 H 20 161/92 H 98 10/11/17 07:30 10/11/17 07:30 10/11/17 07:30 10/11/17 07:30 10/11/17 07:30 Intake and Output: 10/11/17 10/11/17 06:59 18:59 Intake Total 600 Balance 600 - Medications Medications: Current Medications Amlodipine Besylate (Norvasc) 5 mg PO DAILY [facility] Last Admin: 10/11/17 09:34 Dose: 5 mg Carbamazepine (Tegretol) 400 mg PO Q12 [facility] Last Admin: 10/11/17 09:42 Dose: 400 mg Escitalopram Oxalate (Lexapro) 5 mg PO DAILY [facility] Last Admin: 10/11/17 13:33 Dose: 5 mg Folic Acid (Folic Acid) 1 mg PO DAILY [facility] Last Admin: 10/11/17 09:34 Dose: 1 mg Insulin Human Regular (Novolin R) 0 unit SC ACHS [facility] PRN Reason: Protocol Last Admin: 10/11/17 11:41 Dose: Not Given Lorazepam (Ativan) 1 mg PO Q6 PRN PRN Reason: Anxiety Last Admin: 10/11/17 09:35 Dose: 1 mg Metformin HCl (Glucophage Xr) 500 mg PO BID [facility] Last Admin: 10/11/17 09:34 Dose: 500 mg Phenytoin Sodium (Dilantin) 100 mg PO TID [facility] Last Admin: 10/11/17 13:34 Dose: 100 mg Zolpidem Tartrate (Ambien) 5 mg PO HS PRN PRN Reason: Insomnia Last Admin: 10/10/17 00:18 Dose: 5 mg - Labs Labs: 10/09/17 12:05 10/09/17 12:05 PT 12.5 SECONDS (9.7-12.2) H 10/09/17 16:09 INR 1.1 10/09/17 16:09 APTT 27 SECONDS (21-34) 10/09/17 16:09 - Constitutional Appears: Well, No Acute Distress - Respiratory Exam Respiratory Exam: Clear to Ausculation Bilateral, NORMAL BREATHING PATTERN - Cardiovascular Exam Cardiovascular Exam: REGULAR RHYTHM, +S1, +S2 - Extremities Exam Extremities Exam: Full ROM - Neurological Exam Neurological Exam: Alert, Awake, Oriented x3 Assessment and Plan - Assessment and Plan (Free Text) Assessment: A/P 57 yr old female with PMHx of seizure disorder and alcohol abuse admitted with seizure at home CT repeat- no change from prior study seen by neurosurgery There is no surgical intervention indicated.( CSDH no bigger than before, after having another seizure.) seen by Dr. Edwards today an dCT repeated seen by Neel and jhoan for discharge home D/w Dr. Bell, stable for discharge home and f/u with PMD in 3- 5 days Patient instructed strict fall precautions and abstain from alcohol use patient instructed to returns to ED if symptoms returns or any concerning symptoms
[2017-10-11 17:02] VITALS: TEMP 98.8
[2017-10-11 18:08] VITALS: BP 166/90; PULSE 98
--- NOTE | 2017-10-11 23:08 | CP.PCM.DIS ---
Provider - Provider Date of Admission: 10/11/17 06:52 Attending physician: Dannie Bell MD Time Spent in preparation of Discharge (in minutes): 45 Diagnosis - Discharge Diagnosis (1) Seizure Status: Acute Priority: High (2) Subdural hematoma Status: Chronic Priority: Medium (3) Alcohol abuse Status: Acute Hospital Course - Lab Results Lab Results: Most Recent Lab Values WBC 14.6 K/uL (4.8-10.8) H 10/09/17 12:05 RBC 3.39 Mil/uL (3.80-5.20) L 10/09/17 12:05 Hgb 11.3 g/dL (11.0-16.0) 10/09/17 12:05 Hct 34.4 % (34.0-47.0) 10/09/17 12:05 MCV 101.6 fL (81.0-99.0) H 10/09/17 12:05 MCH 33.4 pg (27.0-31.0) H 10/09/17 12:05 MCHC 32.9 g/dL (33.0-37.0) L 10/09/17 12:05 RDW 15.5 % (11.5-14.5) H 10/09/17 12:05 Plt Count 343 K/uL (130-400) 10/09/17 12:05 MPV 8.3 fL (7.2-11.7) 10/09/17 12:05 Neut % (Auto) 82.8 % (50.0-75.0) H 10/09/17 12:05 Lymph % (Auto) 9.5 % (20.0-40.0) L 10/09/17 12:05 [place] % (Auto) 5.6 % (0.0-10.0) 10/09/17 12:05 Eos % (Auto) 1.0 % (0.0-4.0) 10/09/17 12:05 Baso % (Auto) 1.1 % (0.0-2.0) 10/09/17 12:05 Neut # 12.1 K/uL (1.8-7.0) H 10/09/17 12:05 Lymph # 1.4 K/uL (1.0-4.3) 10/09/17 12:05 [place] # 0.8 K/uL (0.0-0.8) 10/09/17 12:05 Eos # 0.1 K/uL (0.0-0.7) 10/09/17 12:05 Baso # 0.2 K/uL (0.0-0.2) 10/09/17 12:05 Neutrophils % (Manual) 78 % (50-75) H 10/09/17 12:05 Band Neutrophils % 1 % (0-2) 10/09/17 12:05 Lymphocytes % (Manual) 12 % (20-40) L 10/09/17 12:05 Monocytes % (Manual) 4 % (0-10) 10/09/17 12:05 Eosinophils % (Manual) 4 % (0-4) 10/09/17 12:05 Basophils % (Manual) 1 % (0-2) 10/09/17 12:05 Platelet Estimate Normal (NORMAL) 10/09/17 12:05 Large Platelets Present 10/09/17 12:05 PT 12.5 SECONDS (9.7-12.2) H 10/09/17 16:09 INR 1.1 10/09/17 16:09 APTT 27 SECONDS (21-34) 10/09/17 16:09 Sodium 132 mmol/L (132-148) 10/09/17 12:05 Potassium 4.2 mmol/L (3.6-5.2) 10/09/17 12:05 Chloride 95 mmol/L (98-107) L 10/09/17 12:05 Carbon Dioxide 26 mmol/L (22-30) 10/09/17 12:05 Anion Gap 15 (10-20) 10/09/17 12:05 BUN 12 mg/dL (7-17) 10/09/17 12:05 Creatinine 0.4 mg/dL (0.7-1.2) L 10/09/17 12:05 Est GFR ( Amer) > 60 10/09/17 12:05 Est GFR (Non-Af Amer) > 60 10/09/17 12:05 POC Glucose (mg/dL) 166 mg/dL (65-110) H 10/11/17 17:24 Random Glucose 119 mg/dL (65-105) H 10/09/17 12:05 Calcium 8.3 mg/dl (8.6-10.4) L 10/09/17 12:05 Total Bilirubin 0.6 mg/dL (0.2-1.3) 10/09/17 12:05 AST 25 U/L (14-36) 10/09/17 12:05 ALT 26 U/L (9-52) 10/09/17 12:05 Alkaline Phosphatase 117 U/L (38-126) 10/09/17 12:05 Total Creatine Kinase 61 U/L (30-135) 10/09/17 12:05 Total Protein 7.9 g/dL (6.3-8.3) 10/09/17 12:05 Albumin 4.3 g/dL (3.5-5.0) 10/09/17 12:05 Globulin 3.6 gm/dL (2.2-3.9) 10/09/17 12:05 Albumin/Globulin Ratio 1.2 (1.0-2.1) 10/09/17 12:05 Urine Color Yellow (YELLOW) 10/09/17 12:49 Urine Clarity Clear (Clear) 10/09/17 12:49 Urine pH 7.0 (5.0-8.0) 10/09/17 12:49 Ur Specific [place] 1.014 (1.003-1.030) 10/09/17 12:49 Urine Protein 1+ mg/dL (NEGATIVE) H 10/09/17 12:49 Urine Glucose (UA) Normal mg/dL (Normal) 10/09/17 12:49 Urine Ketones Negative mg/dL (NEGATIVE) 10/09/17 12:49 Urine Blood Negative (NEGATIVE) 10/09/17 12:49 Urine Nitrate Positive (NEGATIVE) H 10/09/17 12:49 Urine Bilirubin Negative (NEGATIVE) 10/09/17 12:49 Urine Urobilinogen Normal mg/dL (0.2-1.0) 10/09/17 12:49 Ur Leukocyte Esterase Neg [place]/uL (Negative) 10/09/17 12:49 Urine WBC (Auto) 6 /hpf (0-5) H 10/09/17 12:49 Urine RBC (Auto) < 1 /hpf (0-3) 10/09/17 12:49 Ur Squamous Epith Cells 1 /hpf (0-5) 10/09/17 12:49 Urine Bacteria Many (<OCC) H 10/09/17 12:49 Urine Opiates Screen Negative (NEGATIVE) 10/09/17 12:49 Urine Methadone Screen Negative (NEGATIVE) 10/09/17 12:49 Ur Barbiturates Screen Negative (NEGATIVE) 10/09/17 12:49 Phenytoin 10.5 ug/mL (10-20) 10/10/17 13:37 Valproic Acid < 10.0 ug/mL (50.0-100.0) L 10/09/17 12:05 Carbamazepine 3.9 ug/mL (4.0-12.0) L 10/10/17 13:37 Ur Phencyclidine Scrn Negative (NEGATIVE) 10/09/17 12:49 Ur Amphetamines Screen Negative (NEGATIVE) 10/09/17 12:49 U Benzodiazepines Scrn Negative (NEGATIVE) 10/09/17 12:49 U Oth Cocaine Metabols Negative (NEGATIVE) 10/09/17 12:49 U Cannabinoids Screen Negative (NEGATIVE) 10/09/17 12:49 Alcohol, Quantitative < 10 mg/dl (0-10) 10/09/17 12:05 - Hospital Course Hospital Course: Pt seen and evalauted, pt is for discahrge today, she is started on tegretol increase dosage and dilantin, pt agreed to be complaint and avoid drug abuse, pt is for medical managmnet of subdural hematoma as per neurology Discharge Exam - Head Exam Head Exam: NORMAL INSPECTION - Eye Exam Eye Exam: Normal appearance - ENT Exam ENT Exam: Mucous Membranes Moist - Respiratory Exam Respiratory Exam: Clear to PA & Lateral, NORMAL BREATHING PATTERN - Cardiovascular Exam Cardiovascular Exam: REGULAR RHYTHM, +S1, +S2 - GI/Abdominal Exam GI & Abdominal Exam: Normal Bowel Sounds - Neurological Exam Neurological exam: Alert, CN II-XII Intact, Normal Gait, Oriented x3, Reflexes Normal Discharge Plan - Discharge Medications Prescriptions: Phenytoin, Extended [Dilantin] 100 mg PO TID #90 cer metFORMIN ER [glucoPHAGE XR] 500 mg PO BID #60 ter amLODIPine [Norvasc] 5 mg PO DAILY #30 tab carBAMazepine [Tegretol] 400 mg PO Q12 #60 tab - Follow Up Plan Condition: FAIR Disposition: HOME/ ROUTINE Instructions: Epilepsy (DC), Subdural Hematoma (DC), Acute Headache (DC) Additional Instructions: Please f/u with Dr. Baugh( PMD) or Dr. Bell in 3-5 days continue medication as per med. rec. PLEASE PREVENT FALLS Referrals: Dannie Bell MD [Staff Provider] -
== END 2017-10-11 18:40 | disposition home or self-care (01) | DRG 532 ==
LOC: C.ER 11:23 → C.9E 15:11 → C.6T 18:40 → OBSVTOIN 10-11 06:52
PROVIDERS: ADMIT Internal Medicine; ATTEND Internal Medicine
DX: G40.409 Other generalized epilepsy and epileptic syndromes, not intractable, without status epilepticus (principal); I62.03 Nontraumatic chronic subdural hemorrhage; F10.230 Alcohol dependence with withdrawal, uncomplicated; I10 Essential (primary) hypertension; F19.10 Other psychoactive substance abuse, uncomplicated; F41.1 Generalized anxiety disorder; E11.9 Type 2 diabetes mellitus without complications; Z91.14 Patient's other noncompliance with medication regimen; Z91.19 Patient's noncompliance with other medical treatment and regimen

== ENCOUNTER 2017-12-26 11:52 | Inpatient (IN) | payer MEDICAID ==
[2017-12-26 11:52] VITALS: BMI 29.5
--- NOTE | 2017-12-26 13:44 | C.PDOC ---
History Of Present Illness 57 y/o female with PMHx of ETOH Abuse, DM and Seizures brought to ED by EMS for witnessed Seizure lasted about 4-5 minutes by Homemaker prior to arrival. Patient had subdural hematoma on 07/2017 for which she was admitted to [facility]. At ED patient is postictal and is mildly confused unable to answer all questions being asked. HPI limited secondary to patient's clinical condition Time Seen by Provider: 12/26/17 12:16 Chief Complaint (Nursing): Seizure History Per: EMS History/Exam Limitations: clinical condition Number Of Seizures: One Length Of Seizures (Duration): Minutes Past Medical History Reviewed: Historical Data, Nursing Documentation, Vital Signs Vital Signs: Last Vital Signs Temp 98.9 F 12/26/17 16:48 Pulse 108 H 12/26/17 16:48 Resp 18 12/26/17 16:48 BP 159/83 H 12/26/17 16:48 Pulse Ox 96 12/26/17 16:48 - Medical History PMH: Anxiety, Arthritis, Fractures (right upper arm), HTN, Seizures Surgical History: Tonsillectomy - [facility] Procedures IMMOBILIZ/WOUND ATTN NEC (09/03/14) INJECT/INFUSE NEC (09/03/14) OTHER LOCAL DESTRUC SKIN (01/25/14) Family History: States: No Known Family Hx - Social History Hx Alcohol Use: Yes (last week) Hx Substance Use: No - Immunization History Hx Tetanus Toxoid Vaccination: No Hx Influenza Vaccination: No Hx Pneumococcal Vaccination: No Review Of Systems Review Of Systems: ROS cannot be obtained secondary to pt's inabilty to answer questions. Physical Exam - Physical Exam Appears: Non-toxic, Confused (mildly ) Skin: Warm, Dry, No Rash, Ecchymosis (large area to right hip and bilateral knees) Head: Atraumatic, Normacephalic Eye(s): bilateral: PERRL, EOMI Oral Mucosa: Moist Lips: Swelling, No Abrasion, No Laceration Neck: Normal ROM, Supple Cardiovascular: Rhythm Regular Respiratory: Normal Breath Sounds, No Rales, No Rhonchi, No Wheezing Gastrointestinal/Abdominal: Soft, No Tenderness, No Guarding, No Rebound Extremity: Normal ROM, Capillary Refill (<2 seconds) Neurological/Psych: Oriented x3, Normal Speech, Normal Cognition, Normal Cranial Nerves, Normal Motor, Normal Sensation ED Course And Treatment - Laboratory Results Result Diagrams: 12/26/17 14:43 12/26/17 14:43 O2 Sat by Pulse Oximetry: 97 (RA) Pulse Ox Interpretation: Normal Medical Decision Making Medical Decision Making: Progress: On further evaluation, pt was being asked questions and being examined when she had a witnessed seizure Patient was given Ativan Spoke to neurology non [employer] job [employer], given patient Keppra and admitted under Dr. Bell service Disposition Discussed With Dr.: Dannie Bell Counseled Patient/Family Regarding: Studies Performed, Diagnosis - Disposition Disposition: HOME/ ROUTINE Disposition Time: 15:09 Condition: GUARDED - Clinical Impression Clinical Impression: Seizure - Scribe Statement The provider has reviewed the documentation as recorded by the Scribe Nick Padilla All medical record entries made by the Scribe were at my direction and personally dictated by me. I have reviewed the chart and agree that the record accurately reflects my personal performance of the history, physical exam, medical decision making, and the department course for this patient. I have also personally directed, reviewed, and agree with the discharge instructions and disposition. Decision To Admit - Pt Status Changed To: Hospital Disposition Of: Inpatient - Admit Certification Admit to Inpatient:: After my assessment, the patient will require hospitalization for at least two midnights. This is because of the severity of symptoms shown, intensity of services needed, and/or the medical risk in this patient being treated as an outpatient. - InPatient: Physician Admission Certification: I certify that this patient requires 2 or more midnights of care for the following reason:: seizure and substance abuse - . Bed Request Type: Telemetry Admitting Physician: Dannie Bell Patient Diagnosis: Seizure
[2017-12-26 14:47] LABS: BASO # 0.1 K/uL (0.0-0.2); BASO % 0.5 % (0.0-2.0); HEMOGLOBIN 12.9 g/dL (11.0-16.0); LYMPH # 0.8 K/uL (1.0-4.3); LYMPH % 6.8 % (20.0-40.0); MEAN CORPUSCULAR HEMOGLOBIN 33.1 pg (27.0-31.0); MEAN CORPUSCULAR HGB CONC 33.4 g/dL (33.0-37.0); MEAN PLATELET VOLUME 10.1 fL (7.2-11.7); MONO # 0.9 K/uL (0.0-0.8); NEUT # 9.9 K/uL (1.8-7.0); NEUT % 84.7 % (50.0-75.0); NRBC % 0.1 % (0.0-2.0); RBC 3.89 Mil/uL (3.80-5.20); RED CELL DISTRIBUTION WIDTH 16.6 % (11.5-14.5); WHITE BLOOD COUNT 11.6 K/uL (4.8-10.8)
[2017-12-26 14:50] LABS: MEAN CELL VOLUME 98.9 fL (81.0-99.0); PLATELET COUNT 237 K/uL (130-400)
--- NOTE | 2017-12-26 14:53 | CT ---
PROCEDURE: CT HEAD WITHOUT CONTRAST. HISTORY: seizure COMPARISON: 10/11/2017 TECHNIQUE: Axial computed tomography images were obtained through the head/brain without intravenous contrast. Radiation dose: Total exam DLP = 1818.81 mGy-cm. This CT exam was performed using one or more of the following dose reduction techniques: Automated exposure control, adjustment of the mA and/or kV according to patient size, and/or use of iterative reconstruction technique. FINDINGS: HEMORRHAGE: Decreasing size of left high frontal convexity subdural collection. The collection is still mildly heterogeneous and likely represents subacute subdural hemorrhage. Previously, this measured up to 6 mm in width. It now measures approximately 4 mm in greatest dimension and its overall extent has diminished. There is no acute hemorrhage seen elsewhere. BRAIN: No mass effect or edema. Mild atrophy. Mild periventricular white matter lucency consistent with chronic microvascular ischemic change. No evidence of acute infarct. VENTRICLES: Unremarkable. No hydrocephalus. CALVARIUM: No calvarial fracture. There is a new high left parietal scalp hematoma. Although no history is provided acute head trauma, this is suggestive of head trauma. PARANASAL SINUSES: Unremarkable as visualized. No significant inflammatory changes. MASTOID AIR CELLS: Unremarkable as visualized. No inflammatory changes. OTHER FINDINGS: None. IMPRESSION: Decreasing size of high left frontal convexity subdural collection compared to 10/11/2017. Still mildly heterogeneous suggestive of subacute collection. No evidence of acute intracranial hemorrhage. New left high parietal scalp hematoma.
[2017-12-26] MEDS ORDERED: levETIRAcetam 500 MG in Sodium Chloride 0.9% 100 ML IVPB SCH (15:00)
[2017-12-26 15:05] LABS: ALB/GLOB RATIO 1.3 (1.0-2.1); ALBUMIN 4.5 g/dL (3.5-5.0); ALT/SGPT 45 U/L (9-52); AST/SGOT 64 U/L (14-36); BLOOD UREA NITROGEN 13 mg/dL (7-17); CALCIUM 8.6 mg/dl (8.6-10.4); GFR AFRICAN-AMERICAN > 60; GFR NON-AFRICAN AMERICAN > 60
[2017-12-26 15:12] LABS: ANISOCYTOSIS SLIGHT; BANDS 2 % (0-2); LYMPHOCYTE 12 % (20-40); MONOCYTE 2 % (0-10); NEUTROPHIL 84 % (50-75); PLATELET ESTIMATE NORMAL (NORMAL); TOTAL CELLS COUNTED 100
[2017-12-26 15:30] LABS: BENZODIAZEPINES, UR NEGATIVE (NEGATIVE); OPIATES, UR NEGATIVE (NEGATIVE); PHENCYCLIDINE, UR NEGATIVE (NEGATIVE)
[2017-12-26] MEDS: levETIRAcetam 1,000 MG in Sodium Chloride 0.9% 100 ML IVPB SCH (15:30)
[2017-12-26 15:33] LABS: BARBITURATES, UR POSITIVE (NEGATIVE)
[2017-12-26 21:43] LABS: CARBAMAZEPINE < 3.0 ug/mL (4.0-12.0); DILANTIN (PHENYTOIN) < 3.0 ug/mL (10-20)
[2017-12-26] MEDS: (Novolin R) Insulin Human Regular 100 units/ml vial SC SCH (21:51)
--- NOTE | 2017-12-26 22:53 | CP.PCM.HP ---
History of Present Illness - History of Present Illness History of Present Illness: Chief Complaint : Seizure HPI: 57 y/o female with PMHx of ETOH Abuse, DM and Seizures brought to ED by EMS for witnessed Seizure lasted about 4-5 minutes by Homemaker prior to arrival. Patient had subdural hematoma on 07/2017 for which she was admitted to [facility]. At ED patient is postictal and is mildly confused unable to answer all questions being asked. HPI limited secondary to patient's clinical condition Past Patient History - Infectious Disease Hx of Infectious Diseases: None - Past Medical History & Family History Past Medical History?: Yes - Past Social History Smoking Status: Never Smoked - CARDIAC Hx Cardiac Disorders: Yes Hx Hypertension: Yes - PULMONARY Hx Respiratory Disorders: No - NEUROLOGICAL Hx Neurological Disorder: Yes Hx Seizures: Yes - HEENT Hx HEENT Problems: No - RENAL Hx Chronic Kidney Disease: No - ENDOCRINE/METABOLIC Hx Endocrine Disorders: Yes (DM2) - HEMATOLOGICAL/ONCOLOGICAL Hx Blood Disorders: No Hx Human Immunodeficiency Virus (HIV): No - INTEGUMENTARY Hx Dermatological Problems: No - MUSCULOSKELETAL/RHEUMATOLOGICAL Hx Musculoskeletal Disorders: Yes Hx Arthritis: Yes Hx Falls: Yes Hx Fractures: Yes (right upper arm) - GASTROINTESTINAL Hx Gastrointestinal Disorders: No - GENITOURINARY/GYNECOLOGICAL Hx Genitourinary Disorders: No - PSYCHIATRIC Hx Psychophysiologic Disorder: Yes Hx Anxiety: Yes Hx Substance Use: No - SURGICAL HISTORY Hx Surgeries: Yes Hx Tonsillectomy: Yes - ANESTHESIA Hx Anesthesia: Yes Hx Anesthesia Reactions: No Hx Malignant Hyperthermia: No Meds Allergies/Adverse Reactions: Allergies Allergy/AdvReac Type Severity Reaction Status Date / Time No Known Allergies Allergy Verified 12/26/17 12:07 Results - Vital Signs Recent Vital Signs: Last Vital Signs Temp 98.9 F 12/26/17 16:48 Pulse 108 H 12/26/17 19:00 Resp 18 12/26/17 16:48 BP 159/83 H 12/26/17 16:48 Pulse Ox 97 12/26/17 17:16 - Labs Result Diagrams: 12/26/17 14:43 12/26/17 14:43 Labs: Laboratory Results - last 24 hr 12/26/17 12/26/17 12/26/17 12:02 14:43 14:43 WBC 11.6 H RBC 3.89 Hgb 12.9 Hct 38.4 MCV 98.9 D MCH 33.1 H MCHC 33.4 RDW 16.6 H Plt Count 237 D MPV 10.1 Neut % (Auto) 84.7 H Lymph % (Auto) 6.8 L [place] % (Auto) 8.0 Eos % (Auto) 0.0 Baso % (Auto) 0.5 Neut # (Auto) 9.9 H Lymph # (Auto) 0.8 L [place] # (Auto) 0.9 H Eos # (Auto) 0.0 Baso # (Auto) 0.1 Neutrophils % (Manual) 84 H Band Neutrophils % 2 Lymphocytes % (Manual) 12 L Monocytes % (Manual) 2 Platelet Estimate Normal Anisocytosis (manual) Slight Sodium 133 Potassium 3.8 Chloride 87 L Carbon Dioxide 18 L Anion Gap 31 H BUN 13 Creatinine 0.6 L Est GFR ( Amer) > 60 Est GFR (Non-Af Amer) > 60 POC Glucose (mg/dL) 155 H Random Glucose 154 H Calcium 8.6 Total Bilirubin 1.7 H AST 64 H D ALT 45 Alkaline Phosphatase 115 Total Protein 7.8 Albumin 4.5 Globulin 3.3 Albumin/Globulin Ratio 1.3 Urine Opiates Screen Urine Methadone Screen Ur Barbiturates Screen Phenytoin Carbamazepine Ur Phencyclidine Scrn Ur Amphetamines Screen U Benzodiazepines Scrn U Oth Cocaine Metabols U Cannabinoids Screen Alcohol, Quantitative < 10 12/26/17 12/26/17 12/26/17 14:59 21:23 21:45 WBC RBC Hgb Hct MCV MCH MCHC RDW Plt Count MPV Neut % (Auto) Lymph % (Auto) [place] % (Auto) Eos % (Auto) Baso % (Auto) Neut # (Auto) Lymph # (Auto) [place] # (Auto) Eos # (Auto) Baso # (Auto) Neutrophils % (Manual) Band Neutrophils % Lymphocytes % (Manual) Monocytes % (Manual) Platelet Estimate Anisocytosis (manual) Sodium Potassium Chloride Carbon Dioxide Anion Gap BUN Creatinine Est GFR ( Amer) Est GFR (Non-Af Amer) POC Glucose (mg/dL) 96 Random Glucose Calcium Total Bilirubin AST ALT Alkaline Phosphatase Total Protein Albumin Globulin Albumin/Globulin Ratio Urine Opiates Screen Negative Urine Methadone Screen Negative Ur Barbiturates Screen Positive H Phenytoin < 3.0 L Carbamazepine < 3.0 L Ur Phencyclidine Scrn Negative Ur Amphetamines Screen Negative U Benzodiazepines Scrn Negative U Oth Cocaine Metabols Negative U Cannabinoids Screen Negative Alcohol, Quantitative
[2017-12-27] MEDS: levETIRAcetam 1,000 MG in Sodium Chloride 0.9% 100 ML IVPB SCH (03:12)
[2017-12-27 07:52] LABS: BASO % 0.5 % (0.0-2.0); EOS # 0.1 K/uL (0.0-0.7); EOS % 1.2 % (0.0-4.0); HEMOGLOBIN 12.7 g/dL (11.0-16.0); LYMPH # 1.6 K/uL (1.0-4.3); LYMPH % 17.7 % (20.0-40.0); MEAN CELL VOLUME 97.7 fL (81.0-99.0); MEAN CORPUSCULAR HEMOGLOBIN 33.2 pg (27.0-31.0); MEAN PLATELET VOLUME 9.1 fL (7.2-11.7); MONO % 11.5 % (0.0-10.0); NEUT # 6.2 K/uL (1.8-7.0); NEUT % 69.1 % (50.0-75.0); NRBC % 0.2 % (0.0-2.0); RBC 3.82 Mil/uL (3.80-5.20); RED CELL DISTRIBUTION WIDTH 16.5 % (11.5-14.5); WHITE BLOOD COUNT 8.9 K/uL (4.8-10.8)
[2017-12-27 08:08] LABS: BLOOD UREA NITROGEN 13 mg/dL (7-17); CALCIUM 8.2 mg/dl (8.6-10.4); GFR AFRICAN-AMERICAN > 60; GFR NON-AFRICAN AMERICAN > 60
[2017-12-27] MEDS: (Novolin R) Insulin Human Regular 100 units/ml vial SC SCH ×4 (08:22→21:42)
[2017-12-27] MEDS ORDERED: Enoxaparin 40 mg Syringe SC SCH (10:00)
[2017-12-27] MEDS ORDERED: Potassium Chloride 20 mEq ER Tab PO ONE (10:00)
--- NOTE | 2017-12-27 10:31 | CARD ---
APPROVED REPORT EKG Measurement Heart [id number] <Conclusion> Sinus tachycardia Possible Left atrial enlargement Borderline ECG
[2017-12-27] MEDS ORDERED: Iodixanol 320 MG/ML 100 ML BOTTLE IV ONE (13:12)
--- NOTE | 2017-12-27 14:40 | CP.PCM.CON ---
History of Present Illness - History of Present Illness History of Present Illness: Mrs. Blevins is a 57-year-old woman with a past medical history of DM, HTN, alcohol abuse, seizure disorder, who was witnessed having a prolonged seizure and brought to the ED for evaluation. CT scan of the head showed a chronic appearing left frontal/parietal subdural hematoma without significant midline shift. The patient is on carbamazepine, dilantin, and Keppra, but it is doubtful that she is taking them since her serum levels of dilantin and carbamazepine were essentially undetectable. She was loaded with Keppra 1000 mg in the ED and has not had any seizures since. She had a few episodes of agitation while in the ED and on the floor. She did not have any complaints when I saw her. She said that she would like to stop drinking. Review of Systems - Review of Systems All systems: reviewed and no additional remarkable complaints except Past Patient History - Infectious Disease Hx of Infectious Diseases: None - Past Medical History & Family History Past Medical History?: Yes - Past Social History Smoking Status: Never Smoked - CARDIAC Hx Cardiac Disorders: Yes Hx Hypertension: Yes - PULMONARY Hx Respiratory Disorders: No - NEUROLOGICAL Hx Neurological Disorder: Yes Hx Seizures: Yes - HEENT Hx HEENT Problems: No - RENAL Hx Chronic Kidney Disease: No - ENDOCRINE/METABOLIC Hx Diabetes Mellitus Type 2: Yes - HEMATOLOGICAL/ONCOLOGICAL Hx Blood Disorders: No Hx Human Immunodeficiency Virus (HIV): No - INTEGUMENTARY Hx Dermatological Problems: No - MUSCULOSKELETAL/RHEUMATOLOGICAL Hx Arthritis: Yes - GASTROINTESTINAL Hx Gastrointestinal Disorders: No - GENITOURINARY/GYNECOLOGICAL Hx Genitourinary Disorders: No - PSYCHIATRIC Hx Psychophysiologic Disorder: Yes Hx Anxiety: Yes Hx Substance Use: No - SURGICAL HISTORY Hx Surgeries: Yes Hx Tonsillectomy: Yes - ANESTHESIA Hx Anesthesia: Yes Hx Anesthesia Reactions: No Hx Malignant Hyperthermia: No Meds Allergies/Adverse Reactions: Allergies Allergy/AdvReac Type Severity Reaction Status Date / Time No Known Allergies Allergy Verified 12/26/17 12:07 - Medications Medications: Current Medications Amlodipine Besylate (Norvasc) 5 mg PO DAILY [facility] Last Admin: 12/27/17 10:11 Dose: 5 mg Carbamazepine (Tegretol) 400 mg PO Q12 [facility] Last Admin: 12/27/17 10:11 Dose: 400 mg Escitalopram Oxalate (Lexapro) 10 mg PO DAILY [facility] Last Admin: 12/27/17 10:11 Dose: 10 mg Folic Acid (Folic Acid) 1 mg PO DAILY [facility] Last Admin: 12/27/17 10:11 Dose: 1 mg Gabapentin (Neurontin) 600 mg PO TID [facility] Last Admin: 12/27/17 13:28 Dose: 600 mg Insulin Human Regular (Novolin R) 0 unit SC ACHS GIORGIO PRN Reason: Protocol Last Admin: 12/27/17 11:44 Dose: Not Given Lorazepam (Ativan) 2 mg IVP Q6H PRN PRN Reason: Seizure activity Rosuvastatin Calcium (Crestor) 5 mg PO HS [facility] Last Admin: 12/26/17 21:58 Dose: 5 mg Physical Exam - Neurological Exam Neurological exam: Abnormal Gait, Alert, CN II-XII Intact, Oriented x3, Reflexes Normal Additional comments: No notable focal neurological deficits. Results - Vital Signs Recent Vital Signs: Last Vital Signs Temp 98.5 F 12/27/17 10:06 Pulse 107 H 12/27/17 10:06 Resp 20 12/27/17 10:06 BP 156/95 H 12/27/17 10:06 Pulse Ox 97 12/27/17 10:06 - Labs Result Diagrams: 12/27/17 07:34 12/27/17 07:34 Labs: Laboratory Results - last 24 hr 12/26/17 12/26/17 12/26/17 14:43 14:43 14:59 WBC 11.6 H RBC 3.89 Hgb 12.9 Hct 38.4 MCV 98.9 D MCH 33.1 H MCHC 33.4 RDW 16.6 H Plt Count 237 D MPV 10.1 Neut % (Auto) 84.7 H Lymph % (Auto) 6.8 L [place] % (Auto) 8.0 Eos % (Auto) 0.0 Baso % (Auto) 0.5 Neut # (Auto) 9.9 H Lymph # (Auto) 0.8 L [place] # (Auto) 0.9 H Eos # (Auto) 0.0 Baso # (Auto) 0.1 Neutrophils % (Manual) 84 H Band Neutrophils % 2 Lymphocytes % (Manual) 12 L Monocytes % (Manual) 2 Platelet Estimate Normal Anisocytosis (manual) Slight Sodium 133 Potassium 3.8 Chloride 87 L Carbon Dioxide 18 L Anion Gap 31 H BUN 13 Creatinine 0.6 L Est GFR ( Amer) > 60 Est GFR (Non-Af Amer) > 60 POC Glucose (mg/dL) Random Glucose 154 H Calcium 8.6 Total Bilirubin 1.7 H AST 64 H D ALT 45 Alkaline Phosphatase 115 Total Protein 7.8 Albumin 4.5 Globulin 3.3 Albumin/Globulin Ratio 1.3 Urine Opiates Screen Negative Urine Methadone Screen Negative Ur Barbiturates Screen Positive H Phenytoin Carbamazepine Ur Phencyclidine Scrn Negative Ur Amphetamines Screen Negative U Benzodiazepines Scrn Negative U Oth Cocaine Metabols Negative U Cannabinoids Screen Negative Alcohol, Quantitative < 10 12/26/17 12/26/17 12/27/17 21:23 21:45 06:24 WBC RBC Hgb Hct MCV MCH MCHC RDW Plt Count MPV Neut % (Auto) Lymph % (Auto) [place] % (Auto) Eos % (Auto) Baso % (Auto) Neut # (Auto) Lymph # (Auto) [place] # (Auto) Eos # (Auto) Baso # (Auto) Neutrophils % (Manual) Band Neutrophils % Lymphocytes % (Manual) Monocytes % (Manual) Platelet Estimate Anisocytosis (manual) Sodium Potassium Chloride Carbon Dioxide Anion Gap BUN Creatinine Est GFR ( Amer) Est GFR (Non-Af Amer) POC Glucose (mg/dL) 96 106 Random Glucose Calcium Total Bilirubin AST ALT Alkaline Phosphatase Total Protein Albumin Globulin Albumin/Globulin Ratio Urine Opiates Screen Urine Methadone Screen Ur Barbiturates Screen Phenytoin < 3.0 L Carbamazepine < 3.0 L Ur Phencyclidine Scrn Ur Amphetamines Screen U Benzodiazepines Scrn U Oth Cocaine Metabols U Cannabinoids Screen Alcohol, Quantitative 12/27/17 12/27/17 12/27/17 07:34 07:34 11:25 WBC 8.9 RBC 3.82 Hgb 12.7 Hct 37.3 MCV 97.7 MCH 33.2 H MCHC 34.0 RDW 16.5 H Plt Count 206 MPV 9.1 Neut % (Auto) 69.1 Lymph % (Auto) 17.7 L [place] % (Auto) 11.5 H Eos % (Auto) 1.2 Baso % (Auto) 0.5 Neut # (Auto) 6.2 Lymph # (Auto) 1.6 [place] # (Auto) 1.0 H Eos # (Auto) 0.1 Baso # (Auto) 0.0 Neutrophils % (Manual) Band Neutrophils % Lymphocytes % (Manual) Monocytes % (Manual) Platelet Estimate Anisocytosis (manual) Sodium 134 Potassium 3.3 L Chloride 93 L Carbon Dioxide 23 Anion Gap 22 H BUN 13 Creatinine 0.5 L Est GFR ( Amer) > 60 Est GFR (Non-Af Amer) > 60 POC Glucose (mg/dL) 138 H Random Glucose 118 H Calcium 8.2 L Total Bilirubin AST ALT Alkaline Phosphatase Total Protein Albumin Globulin Albumin/Globulin Ratio Urine Opiates Screen Urine Methadone Screen Ur Barbiturates Screen Phenytoin Carbamazepine Ur Phencyclidine Scrn Ur Amphetamines Screen U Benzodiazepines Scrn U Oth Cocaine Metabols U Cannabinoids Screen Alcohol, Quantitative Assessment & Plan (1) Seizure Assessment and Plan: The patient is unlikely to be taking her medications. Some data suggests that gabapentin may help prevent alcoholic relapse and is a decent seizure medication. Will start her on gabapentin 600 mg TID for seizure prophylaxis. She states that her carbamazepine helps her when she takes it, therefor will continue that 400 mg BID. No need for further work-up with EEG at this time. Status: Acute (2) Subdural hematoma Assessment and Plan: Will repeat CT head in the AM to ensure this bleed is stable. CTA scan was reviewed and does not appear to have any vascular lesions. Currently, it does not appear to be concerning and does not require evacuation since the patient does not have significant midline shift or effects from the bleed. Will continue seizure prophylaxis. Thank you. Status: Acute
--- NOTE | 2017-12-27 15:03 | CT ---
PROCEDURE: CTA HEAD AND NECK WITH CONTRAST HISTORY: follow up with the cerebral hematoma COMPARISON: None available. TECHNIQUE: Initial noncontrast head CT was performed. Subsequently, CT angiogram of the head and neck were performed after the intravenous administration of 80 mL of Omnipaque 350. Contiguous 1.5mm thick images were obtained in the axial plane of the neck. 2-D coronal and sagittal MPR images were obtained. Imaging postprocessing was performed with 3-D images also obtained. A delayed contrast head CT was also obtained. This CT exam was performed using one or more of the following dose reduction techniques: Automated exposure control, adjustment of the mA and/or kV according to patient size, and/or use of iterative reconstruction technique. Contrast dose: 100 mL Visipaque 320 Radiation dose: Total exam DLP = 578.89 MGy-cm. FINDINGS: HEAD: Right: The intracranial internal carotid artery, and anterior and middle cerebral arteries are widely patent. Left: The intracranial internal carotid artery, and anterior and middle cerebral arteries are widely patent. Posterior circulation: The visualized intracranial vertebral arteries, basilar artery and posterior cerebral arteries are widely patent. 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 There is no intracranial saccular aneurysm. NECK: There is a two vessel aortic arch. There is no stenosis at the origins of the great vessels at the level of the aortic arch. There are minimal atherosclerotic calcifications in the right carotid bulb and left proximal internal carotid artery. Right Carotid: On the right, the common carotid, internal carotid and external carotid arteries are widely patent. There is no hemodynamically significant stenosis in the internal carotid artery by NASCET criteria. Left Carotid: On the left, the common carotid, internal carotid and external carotid arteries are widely patent. There is no hemodynamically significant stenosis in the internal carotid artery by NASCET criteria. The vertebral arteries are widely patent. The right vertebral artery is dominant, an anatomic variant. The lung apices are clear. IMPRESSION: Normal CTA of the neck.
--- NOTE | 2017-12-27 23:36 | CP.PCM.PN ---
Subjective - Date & Time of Evaluation Date of Evaluation: 12/27/17 Time of Evaluation: 19:40 - Subjective Subjective: Pt seen and examined Objective - Vital Signs/Intake and Output Vital Signs (last 24 hours): Temp Pulse Resp BP Pulse Ox 98.6 F 94 H 20 150/90 95 12/27/17 15:00 12/27/17 16:00 12/27/17 15:00 12/27/17 15:00 12/27/17 15:00 Intake and Output: 12/27/17 12/28/17 18:59 06:59 Intake Total 500 Balance 500 - Medications Medications: Current Medications Amlodipine Besylate (Norvasc) 5 mg PO DAILY [facility] Last Admin: 12/27/17 10:11 Dose: 5 mg Carbamazepine (Tegretol) 400 mg PO Q12 [facility] Last Admin: 12/27/17 21:43 Dose: 400 mg Escitalopram Oxalate (Lexapro) 10 mg PO DAILY [facility] Last Admin: 12/27/17 10:11 Dose: 10 mg Folic Acid (Folic Acid) 1 mg PO DAILY [facility] Last Admin: 12/27/17 10:11 Dose: 1 mg Gabapentin (Neurontin) 600 mg PO TID [facility] Last Admin: 12/27/17 17:32 Dose: 600 mg Insulin Human Regular (Novolin R) 0 unit SC ACHS [facility] PRN Reason: Protocol Last Admin: 12/27/17 21:42 Dose: Not Given Lorazepam (Ativan) 2 mg IVP Q6H PRN PRN Reason: Seizure activity Rosuvastatin Calcium (Crestor) 5 mg PO HS [facility] Last Admin: 12/27/17 21:43 Dose: 5 mg - Labs Labs: 12/27/17 07:34 12/27/17 07:34
[2017-12-28] MEDS: (Novolin R) Insulin Human Regular 100 units/ml vial SC SCH ×3 (08:14→16:55)
--- NOTE | 2017-12-28 11:21 | CT ---
PROCEDURE: CT HEAD WITHOUT CONTRAST. HISTORY: follow [facility] COMPARISON: 12/26/2017. TECHNIQUE: Axial computed tomography images were obtained through the head/brain without intravenous contrast. Radiation dose: Total exam DLP = 927.64 mGy-cm. This CT exam was performed using one or more of the following dose reduction techniques: Automated exposure control, adjustment of the mA and/or kV according to patient size, and/or use of iterative reconstruction technique. FINDINGS: HEMORRHAGE: No acute intracranial hemorrhage. BRAIN: Since the prior examination, there is interval progressive resolution of left high frontal convexity chronic subdural hematoma with residual 3 mm subdural collection. No evidence of mass effect or midline shift. There are mild chronic microangiopathic changes. There is no mass or territorial infarction VENTRICLES: There is mild age advanced global parenchymal volume loss and proportionate enlargement of the ventricles and cortical sulci. CALVARIUM: The skull base and calvarium are normal. There is decrease in size of left parietal scalp hematoma. PARANASAL SINUSES: Predominantly clear.Status post open reduction and internal fixation of left orbital floor fracture. MASTOID AIR CELLS: Predominantly clear. OTHER FINDINGS: None. IMPRESSION: No acute intracranial abnormality. Interval progressive decrease in size of known left chronic subdural collection now measuring 3 mm maximum width without mass effect or midline shift.
--- NOTE | 2017-12-28 16:07 | CP.PCM.PN ---
Subjective - Date & Time of Evaluation Date of Evaluation: 12/28/17 Time of Evaluation: 16:07 - Subjective Subjective: -FOLLOW UP WITH DR. MOORE IN THE OFFICE WITHIN 5-7 DAYS--CALL FOR APPT TIME. -FOLLOW UP WITH DR. BOWSER (NEUROLOGIST) IN THE OFFICE WITHIN 1 WEEK---CALL FOR APPT TIME. -TAKE HOME MEDICATIONS USUAL. -TAKE NEWLY PRESCRIBED MEDICATION PER DR. MOORE'S REQUEST: 1) GABAPENTIN 600 MG BY MOUTH 3 TIMES A DAY (MORNING, AFTERNOON AND EVENING) -FOR FURTHER QUESTIONS, CONTACT DR. MOORE'S OFFICE. Objective - Vital Signs/Intake and Output Vital Signs (last 24 hours): Temp Pulse Resp BP Pulse Ox 98.2 F 93 H 28 H 161/75 H 99 12/28/17 09:45 12/28/17 09:45 12/28/17 09:45 12/28/17 09:45 12/28/17 09:45 Intake and Output: 12/28/17 12/28/17 06:59 18:59 Intake Total 420 720 Balance 420 720 - Medications Medications: Current Medications Amlodipine Besylate (Norvasc) 5 mg PO DAILY [facility] Last Admin: 12/28/17 10:15 Dose: 5 mg Carbamazepine (Tegretol) 400 mg PO Q12 [facility] Last Admin: 12/28/17 10:15 Dose: 400 mg Escitalopram Oxalate (Lexapro) 10 mg PO DAILY [facility] Last Admin: 12/28/17 10:15 Dose: 10 mg Folic Acid (Folic Acid) 1 mg PO DAILY [facility] Last Admin: 12/28/17 10:15 Dose: 1 mg Gabapentin (Neurontin) 600 mg PO TID [facility] Last Admin: 12/28/17 13:42 Dose: 600 mg Insulin Human Regular (Novolin R) 0 unit SC ACHS [facility] PRN Reason: Protocol Last Admin: 12/28/17 12:12 Dose: Not Given Lorazepam (Ativan) 2 mg IVP Q6H PRN PRN Reason: Seizure activity Rosuvastatin Calcium (Crestor) 5 mg PO HS [facility] Last Admin: 12/27/17 21:43 Dose: 5 mg - Labs Labs: 12/27/17 07:34 12/27/17 07:34
[2017-12-28 16:13] VITALS: BP 134/86; PULSE 95; RESP 20; TEMP 98.1; O2SAT 95
--- NOTE | 2017-12-29 14:04 | CP.PCM.DIS ---
Provider - Provider Date of Admission: 12/26/17 15:10 Attending physician: Dannie Bell MD Time Spent in preparation of Discharge (in minutes): 43 Hospital Course - Lab Results Lab Results: Most Recent Lab Values WBC 8.9 K/uL (4.8-10.8) 12/27/17 07:34 RBC 3.82 Mil/uL (3.80-5.20) 12/27/17 07:34 Hgb 12.7 g/dL (11.0-16.0) 12/27/17 07:34 Hct 37.3 % (34.0-47.0) 12/27/17 07:34 MCV 97.7 fL (81.0-99.0) 12/27/17 07:34 MCH 33.2 pg (27.0-31.0) H 12/27/17 07:34 MCHC 34.0 g/dL (33.0-37.0) 12/27/17 07:34 RDW 16.5 % (11.5-14.5) H 12/27/17 07:34 Plt Count 206 K/uL (130-400) 12/27/17 07:34 MPV 9.1 fL (7.2-11.7) 12/27/17 07:34 Neut % (Auto) 69.1 % (50.0-75.0) 12/27/17 07:34 Lymph % (Auto) 17.7 % (20.0-40.0) L 12/27/17 07:34 [place] % (Auto) 11.5 % (0.0-10.0) H 12/27/17 07:34 Eos % (Auto) 1.2 % (0.0-4.0) 12/27/17 07:34 Baso % (Auto) 0.5 % (0.0-2.0) 12/27/17 07:34 Neut # (Auto) 6.2 K/uL (1.8-7.0) 12/27/17 07:34 Lymph # (Auto) 1.6 K/uL (1.0-4.3) 12/27/17 07:34 [place] # (Auto) 1.0 K/uL (0.0-0.8) H 12/27/17 07:34 Eos # (Auto) 0.1 K/uL (0.0-0.7) 12/27/17 07:34 Baso # (Auto) 0.0 K/uL (0.0-0.2) 12/27/17 07:34 Neutrophils % (Manual) 84 % (50-75) H 12/26/17 14:43 Band Neutrophils % 2 % (0-2) 12/26/17 14:43 Lymphocytes % (Manual) 12 % (20-40) L 12/26/17 14:43 Monocytes % (Manual) 2 % (0-10) 12/26/17 14:43 Platelet Estimate Normal (NORMAL) 12/26/17 14:43 Anisocytosis (manual) Slight 12/26/17 14:43 Sodium 134 mmol/L (132-148) 12/27/17 07:34 Potassium 3.3 mmol/L (3.6-5.2) L 12/27/17 07:34 Chloride 93 mmol/L (98-107) L 12/27/17 07:34 Carbon Dioxide 23 mmol/L (22-30) 12/27/17 07:34 Anion Gap 22 (10-20) H 12/27/17 07:34 BUN 13 mg/dL (7-17) 12/27/17 07:34 Creatinine 0.5 mg/dL (0.7-1.2) L 12/27/17 07:34 Est GFR ( Amer) > 60 12/27/17 07:34 Est GFR (Non-Af Amer) > 60 12/27/17 07:34 POC Glucose (mg/dL) 150 mg/dL (65-110) H 12/28/17 16:33 Random Glucose 118 mg/dL (65-105) H 12/27/17 07:34 Calcium 8.2 mg/dl (8.6-10.4) L 12/27/17 07:34 Total Bilirubin 1.7 mg/dL (0.2-1.3) H 12/26/17 14:43 AST 64 U/L (14-36) H D 12/26/17 14:43 ALT 45 U/L (9-52) 12/26/17 14:43 Alkaline Phosphatase 115 U/L (38-126) 12/26/17 14:43 Total Protein 7.8 g/dL (6.3-8.3) 12/26/17 14:43 Albumin 4.5 g/dL (3.5-5.0) 12/26/17 14:43 Globulin 3.3 gm/dL (2.2-3.9) 12/26/17 14:43 Albumin/Globulin Ratio 1.3 (1.0-2.1) 12/26/17 14:43 Urine Opiates Screen Negative (NEGATIVE) 12/26/17 14:59 Urine Methadone Screen Negative (NEGATIVE) 12/26/17 14:59 Ur Barbiturates Screen Positive (NEGATIVE) H 12/26/17 14:59 Phenytoin < 3.0 ug/mL (10-20) L 12/26/17 21:23 Carbamazepine < 3.0 ug/mL (4.0-12.0) L 12/26/17 21:23 Ur Phencyclidine Scrn Negative (NEGATIVE) 12/26/17 14:59 Ur Amphetamines Screen Negative (NEGATIVE) 12/26/17 14:59 U Benzodiazepines Scrn Negative (NEGATIVE) 12/26/17 14:59 U Oth Cocaine Metabols Negative (NEGATIVE) 12/26/17 14:59 U Cannabinoids Screen Negative (NEGATIVE) 12/26/17 14:59 Alcohol, Quantitative < 10 mg/dl (0-10) 12/26/17 14:43 - Hospital Course Hospital Course: PT SEEN AND EXAMINED,PT IS SEIZURE FREE, NO DISTRESS, IS STABLE FOR DISCHARGE -FOLLOW UP WITH ME IN THE OFFICE WITHIN 5-7 DAYS--CALL FOR APPT TIME. -FOLLOW UP WITH DR. BOWSER (NEUROLOGIST) IN THE OFFICE WITHIN 1 WEEK---CALL FOR APPT TIME. -TAKE HOME MEDICATIONS USUAL. -TAKE NEWLY PRESCRIBED MEDICATION 1) GABAPENTIN 600 MG BY MOUTH 3 TIMES A DAY (MORNING, AFTERNOON AND EVENING) -FOR FURTHER QUESTIONS, CONTACT ME AT OFFICE. Discharge Exam - Eye Exam Eye Exam: EOMI, Normal appearance, PERRL Pupil Exam: NORMAL ACCOMODATION, PERRL - ENT Exam ENT Exam: Mucous Membranes Moist - Respiratory Exam Respiratory Exam: Clear to PA & Lateral, NORMAL BREATHING PATTERN - Cardiovascular Exam Cardiovascular Exam: REGULAR RHYTHM, +S1, +S2 - Rectal Exam Rectal Exam: Deferred Discharge Plan - Discharge Medications Prescriptions: Gabapentin [Neurontin] 600 mg PO TID #90 tab - Follow Up Plan Condition: GUARDED Disposition: HOME/ ROUTINE Instructions: Alcohol Use - When Is Drinking a Problem?, Seizures, Adult (DC) Additional Instructions: -FOLLOW UP WITH DR. BELL IN THE OFFICE WITHIN 5-7 DAYS--CALL FOR APPT TIME. -FOLLOW UP WITH DR. BOWSER (NEUROLOGIST) IN THE OFFICE WITHIN 1 WEEK---CALL FOR APPT TIME. -TAKE HOME MEDICATIONS USUAL. -TAKE NEWLY PRESCRIBED MEDICATION PER DR. BELL'S REQUEST: 1) GABAPENTIN 600 MG BY MOUTH 3 TIMES A DAY (MORNING, AFTERNOON AND EVENING) -FOR FURTHER QUESTIONS, CONTACT DR. BELL'S OFFICE. Referrals: Virgilio Bowser MD [Staff Provider] - Dannie Bell MD [Staff Provider] -
== END 2017-12-28 18:46 | disposition home or self-care (01) | DRG 532 ==
LOC: C.ER 11:52 → C.9E 15:10 → C.6T 15:46
PROVIDERS: ADMIT Internal Medicine; ATTEND Internal Medicine
DX: G40.909 Epilepsy, unspecified, not intractable, without status epilepticus (principal); I62.03 Nontraumatic chronic subdural hemorrhage; E11.9 Type 2 diabetes mellitus without complications; I10 Essential (primary) hypertension; Z79.899 Other long term (current) drug therapy; F10.10 Alcohol abuse, uncomplicated; F41.9 Anxiety disorder, unspecified

== ENCOUNTER 2018-03-10 11:14 | Emergency (ER) | payer MEDICAID ==
[2018-03-10 11:14] VITALS: BMI 29.5
--- NOTE | 2018-03-10 12:18 | C.PDOC ---
History Of Present Illness 57 year old female presents to the ER via EMS from the [facility] after suffering a panic attack. Patient states she is being evicted and has no where to go, she reports she was locked out of her home and was not allowed to get her things out. Denies ETOH use or drug use. Time Seen by Provider: 03/10/18 11:44 Chief Complaint (Nursing): Dizziness/Lightheaded History Per: Patient History/Exam Limitations: no limitations Onset/Duration Of Symptoms: Hrs Current Symptoms Are (Timing): Still Present Recent travel outside of the [place]: No Past Medical History Reviewed: Historical Data, Nursing Documentation, Vital Signs Vital Signs: Last Vital Signs Temp 98.6 F 03/10/18 12:58 Pulse 110 H 03/10/18 12:58 Resp 16 03/10/18 12:58 BP 170/86 H 03/10/18 12:58 Pulse Ox 97 03/10/18 13:35 - Medical History PMH: Anxiety, Arthritis, Depression, Fractures (right upper arm), HTN, Seizures Surgical History: Tonsillectomy - [facility] Procedures IMMOBILIZ/WOUND ATTN NEC (09/03/14) INJECT/INFUSE NEC (09/03/14) OTHER LOCAL DESTRUC SKIN (01/25/14) Family History: States: Unknown Family Hx - Social History Hx Alcohol Use: Yes (as per pt occasionally) Hx Substance Use: No - Immunization History Hx Tetanus Toxoid Vaccination: No Hx Influenza Vaccination: No Hx Pneumococcal Vaccination: No Review Of Systems Cardiovascular: Negative for: Chest Pain, Palpitations Respiratory: Negative for: Shortness of Breath, Wheezing Psych: Positive for: Anxiety Physical Exam - Physical Exam Appears: Non-toxic, Other (Anxious) Skin: Normal Color, Warm, Dry Head: Atraumatic, Normacephalic Eye(s): bilateral: Normal Inspection Oral Mucosa: Moist Chest: Symmetrical, No Tenderness Cardiovascular: Rhythm Regular (Tachycardic) Respiratory: Normal Breath Sounds, No Rales, No Rhonchi, No Wheezing Neurological/Psych: Oriented x3, Normal Speech, Other (No focal deficits) ED Course And Treatment ECG: Interpreted By Me, Viewed By Me ECG Rhythm: Sinus Tachycardia ECG Interpretation: Normal Rate From EC O2 Sat by Pulse Oximetry: 97 (room air) Pulse Ox Interpretation: Normal Medical Decision Making Medical Decision Making: Impression: 57 year old female with anxiety Plan: * Ativan * EKG EKG shows sinus tachycardia Prior records reviewed multiple ER visits for drug or psych related problems Patient wanted Ativan IM and not PO Patient does not want to speak to crisis and refused other testing Patient observed in ED for over an hour. She did not show any tremors or signs of withdrawal or distress. Patient then asking for discharge, still mildly tachy at 110bpm Disposition Counseled Patient/Family Regarding: Diagnosis, Need For Followup - Disposition Disposition: HOME/ ROUTINE Disposition Time: 13:35 Condition: STABLE Instructions: Anxiety, Adult (DC) Forms: Tackk (Sinhala) - POA Present On Arrival: None - Clinical Impression Clinical Impression: Anxiety - Scribe Statement The provider has reviewed the documentation as recorded by the Scribmanuela Vigil All medical record entries made by the Scribe were at my direction and personally dictated by me. I have reviewed the chart and agree that the record accurately reflects my personal performance of the history, physical exam, medical decision making, and the department course for this patient. I have also personally directed, reviewed, and agree with the discharge instructions and disposition.
[2018-03-10 13:02] VITALS: BP 170/86; PULSE 110; RESP 16; TEMP 98.6
[2018-03-10 13:35] VITALS: O2SAT 97
--- NOTE | 2018-03-11 12:42 | CARD ---
APPROVED REPORT EKG Measurement Heart [id number] <Conclusion> Sinus tachycardia Possible Left atrial enlargement Borderline ECG
== END 2018-03-10 14:27 | disposition home or self-care (01) ==
LOC: C.ER 11:14
DX: F41.9 Anxiety disorder, unspecified (principal)
CPT/HCPCS: 82948; 93005; 96372; 99285; J2060